=== PATIENT | female | born 1960 | race African-American/Black ===

== ENCOUNTER → 2018-01-08 | Outpatient (CLI) | payer OTHER | END | disposition home or self-care (01) | LOC: MAMMO 09:12 | DX: Z12.31 Encounter for screening mammogram for malignant neoplasm of breast (principal) | CPT/HCPCS: 77067 ==

== ENCOUNTER 2018-02-11 01:40 | Observation (INO) | payer OTHER ==
[~2018-02-11] VITALS: Ht 160 cm; Wt 83.0 kg
[2018-02-11] MEDS ORDERED: PRAV80TA2 PO (02:31)
[2018-02-11] MEDS ORDERED: CYCL10TA2 PO (02:31)
[2018-02-11] MEDS ORDERED: METF500T16 PO (02:31)
[2018-02-11] MEDS ORDERED: CELE100C PO (02:31)
[2018-02-11] MEDS ORDERED: METH-38 PO (02:31)
[2018-02-11] MEDS ORDERED: BENZ-8 PO (02:31)
[2018-02-11] MEDS ORDERED: CARV3.122 PO (02:31)
[2018-02-11] MEDS ORDERED: FENO160T PO (02:31)
[2018-02-11 02:56] LABS: BASO # 0.1 x10^3/uL (0.0-0.2); BASO % 1 % (0-3); EOS % 0 % (0-3); HEMATOCRIT 36.9 % (36.0-47.0); LYMPH % 8 % (24-48); MEAN CORPUSCULAR VOLUME 86 fL (79-100); MONO # 0.3 x10^3/uL (0.0-1.1); MONO % 2 % (0-9); NEUT # 10.7 x10^3uL (1.8-7.7); NEUT % 88 % (31-73); PLATELET COUNT 223 x10^3/uL (140-400); RED BLOOD COUNT 4.26 x10^6/uL (3.50-5.40); RED CELL DISTRIBUTION WIDTH 14.7 % (11.5-14.5); WHITE BLOOD COUNT 12.1 x10^3/uL (4.0-11.0)
[2018-02-11] MEDS ORDERED: ONDANSETRON PF 4 MG/2 ML VIAL. IV ONE (03:00)
[2018-02-11] MEDS ORDERED: IV NORMAL SALINE 1000ML BAG 1,000 ML IV ONE (03:00)
[2018-02-11 03:28] LABS: HEMOGLOBIN 12.7 g/dL (12.0-15.5); MEAN CORPUSCULAR HEMOGLOBIN 30 pg (25-35); MEAN CORPUSCULAR HGB CONC 34 g/dL (31-37)
[2018-02-11] MEDS ORDERED: fentaNYL PF VIAL 100 MCG/2 ML VIAL IV ONE (03:30)
[2018-02-11] MEDS ORDERED: DICYCLOMINE HCL 10 MG CAPSULE PO ONE (03:30)
--- NOTE | 2018-02-11 03:34 | PHYS DOC ---
Past Medical History Past Medical History: Diabetes-Type II, High Cholesterol Past Surgical History: Hysterectomy, Other Additional Past Surgical Histo: Right thumb, right carpal tunnel Alcohol Use: None Drug Use: None Adult General Chief Complaint Chief Complaint: ABDOMINAL PAIN HPI HPI Patient is a 57 year old female presenting with abdominal pain and vomiting. Since around 5 PM she had some leftover steak last night but nobody else had she was worried it might be bad abdominal pain is described as cramping diffuse worse around the bellybutton no diarrhea last bowel movement was a couple of days ago which is normal for her no fever no chest pain no shortness of breath. Review of Systems Review of Systems Constitutional: Denies fever or chills [] Eyes: Denies change in visual acuity, redness, or eye pain [] HENT: Denies nasal congestion or sore throat [] Musculoskeletal: Denies back pain or joint pain [] Integument: Denies rash or skin lesions [] Neurologic: Denies headache, focal weakness or sensory changes [] Endocrine: Denies polyuria or polydipsia [] All other systems were reviewed and found to be within normal limits, except as documented in this note. Current Medications Current Medications Current Medications Medications (Trade) Dose Ordered Sig/Rosemary Start Time Stop Time Status Last Admin Dose Admin Dicyclomine HCl (Bentyl) 10 mg 1X ONCE 02/11/18 03:30 02/11/18 03:31 DC Fentanyl Citrate (Fentanyl 2ml Vial) 50 mcg PRN Q2HR PRN 02/11/18 04:00 02/12/18 03:59 UNV Ondansetron HCl (Zofran) 4 mg PRN Q8HRS PRN 02/11/18 04:00 02/12/18 03:59 UNV Sodium Chloride 1,000 ml @ 100 mls/hr Q10H 02/11/18 03:57 02/12/18 03:56 UNV Allergies Allergies Allergies Coded Allergies Type Severity Reaction Last Updated Verified No Known Drug Allergies 02/11/18 No Physical Exam Physical Exam Constitutional: Well developed, well nourished, MILD distress, non-toxic appearance. [] HENT: Normocephalic, atraumatic, bilateral external ears normal, oropharynx moist, no oral exudates, nose normal. [] Eyes: PERRLA, EOMI, conjunctiva normal, no discharge. [] Neck: Normal range of motion, no tenderness, supple, no stridor. [] Cardiovascular:Heart rate regular rhythm, no murmur [] Lungs & Thorax: Bilateral breath sounds clear to auscultation [] Abdomen: Bowel sounds normal, soft, MILD TO MODERATE EPIGASTRIC tenderness, no masses, no pulsatile masses. [] Skin: Warm, dry, no erythema, no rash. [] Back: No tenderness, no CVA tenderness. [] Extremities: No tenderness, no cyanosis, no clubbing, ROM intact, no edema. [] Neurologic: Alert and oriented X 3, normal motor function, normal sensory function, no focal deficits noted. [] Psychologic: Affect normal, judgement normal, mood normal. [] Current Patient Data Vital Signs Vital Signs Date Time Temp Pulse Resp B/P (MAP) Pulse Ox O2 Delivery O2 Flow Rate FiO2 02/11/18 03:07 17 02/11/18 02:03 98.2 96 169/84 (112) 99 Room Air 98.2 Lab Values Laboratory Tests Test 02/11/18 02:48 White Blood Count 12.1 x10^3/uL (4.0-11.0) H Red Blood Count 4.26 x10^6/uL (3.50-5.40) Hemoglobin 12.7 g/dL (12.0-15.5) Hematocrit 36.9 % (36.0-47.0) Mean Corpuscular Volume 86 fL (79-100) Mean Corpuscular Hemoglobin 30 pg (25-35) Mean Corpuscular Hemoglobin Concent 34 g/dL (31-37) Red Cell Distribution Width 14.7 % (11.5-14.5) H Platelet Count 223 x10^3/uL (140-400) Neutrophils (%) (Auto) 88 % (31-73) H Lymphocytes (%) (Auto) 8 % (24-48) L Monocytes (%) (Auto) 2 % (0-9) Eosinophils (%) (Auto) 0 % (0-3) Basophils (%) (Auto) 1 % (0-3) Neutrophils # (Auto) 10.7 x10^3uL (1.8-7.7) H Lymphocytes # (Auto) 1.0 x10^3/uL (1.0-4.8) Monocytes # (Auto) 0.3 x10^3/uL (0.0-1.1) Eosinophils # (Auto) 0.0 x10^3/uL (0.0-0.7) Basophils # (Auto) 0.1 x10^3/uL (0.0-0.2) Platelet Estimate Pending Sodium Level 138 mmol/L (136-145) Potassium Level 4.5 mmol/L (3.5-5.1) Chloride Level 102 mmol/L (98-107) Carbon Dioxide Level 19 mmol/L (21-32) L Anion Gap 17 (6-14) H Blood Urea Nitrogen 9 mg/dL (7-20) Creatinine 0.5 mg/dL (0.6-1.0) L Estimated GFR (Cockcroft-Gault) 152.8 BUN/Creatinine Ratio 18 (6-20) Glucose Level 152 mg/dL (70-99) H Calcium Level 9.6 mg/dL (8.5-10.1) Total Bilirubin 0.4 mg/dL (0.2-1.0) Aspartate Amino Transferase (AST) 28 U/L (15-37) Alanine Aminotransferase (ALT) 34 U/L (14-59) Alkaline Phosphatase 50 U/L (46-116) Troponin I Quantitative < 0.017 ng/mL (0.000-0.055) Total Protein 7.6 g/dL (6.4-8.2) Albumin 4.1 g/dL (3.4-5.0) Albumin/Globulin Ratio 1.2 (1.0-1.7) Lipase 764 U/L (73-393) H Laboratory Tests 02/11/18 02:48 Laboratory Tests 02/11/18 02:48 EKG EKG [] Radiology/Procedures Radiology/Procedures [] Impressions: RUQ US ORDERED PENDING AT THIS [facility]. Course & Med Decision Making Course & Med Decision Making Pertinent Labs and Imaging studies reviewed. (See chart for details) []57-year-old female diabetes high cholesterol presenting with upper abdominal discomfort and frequent vomiting lipase elevated no previous history she is not a drinker ultrasound is pending to evaluate gallbladder to rule out gallstone pancreatitis. Given this is her first episode of pancreatitis and she did have moderate to severe symptoms I think admission for IV fluids bowel rest etc. pain control is reasonable. Admit to the service of Dr. Tien Parson Disclaimer Eb Disclaimer This electronic medical record was generated, in whole or in part, using a voice recognition dictation system. Departure Departure Impression: Primary Impression: Pancreatitis Disposition: 09 ADMITTED INPATIENT Admitting Physician: Abhi Silva Condition: STABLE Referrals: GABRIEL MATHUR Jr, MD (PCP) SHEYLA MERRITT MD Feb 11, 2018 03:34
[2018-02-11 03:39] LABS: CALCIUM 9.6 mg/dL (8.5-10.1); CREATININE 0.5 mg/dL (0.6-1.0); GFR 152.8; POTASSIUM 4.5 mmol/L (3.5-5.1)
[2018-02-11 03:44] LABS: ALBUMIN 4.1 g/dL (3.4-5.0); ALBUMIN/GLOBULIN RATIO 1.2 (1.0-1.7); TOTAL BILIRUBIN 0.4 mg/dL (0.2-1.0); TOTAL PROTEIN 7.6 g/dL (6.4-8.2)
[2018-02-11] MEDS ORDERED: ONDANSETRON PF 4 MG/2 ML VIAL. IV PRN ×2 (04:00→09:15)
[2018-02-11] MEDS ORDERED: IV NORMAL SALINE 1000ML BAG 1,000 ML IV SCH (04:30)
--- NOTE | 2018-02-11 04:55 | RAD ---
INDICATION : abd pain, n/v x 1 day COMPARISON: September 2003 TECHNIQUE: Multiple ultrasound images obtained through the abdomen in grayscale and color. FINDINGS: Liver: Echogenic Gallbladder: Partially visualized without definite stones. IVC: Partially seen at level of liver Common Bile Duct: Not dilated. Pancreas: Partially obscured by overlying structures. No definite adjacent fluid collection at visualized portion. Appears slightly hypoechoic. Right Kidney: No hydronephrosis. IMPRESSION: Liver appears echogenic. Nonspecific but can be seen with fatty infiltration. Pancreas is only partially seen and appears slightly hypoechoic. This is a borderline finding but pancreatitis not excluded. Electronically signed by: Geovanny Black MD (02/11/2018 4:52 AM) [id number]
[2018-02-11] MEDS: fentaNYL PF VIAL 100 MCG/2 ML VIAL IV PRN ×3 (05:10→14:42)
[2018-02-11 05:22] LABS: % BANDS 7 % (0-9); % LYMPHS 4 % (24-48); % MONOS 1 % (0-10); % SEGS 88 % (35-66)
[2018-02-11 05:23] LABS: PLT ESTIMATE ADEQUATE (ADEQUATE)
--- NOTE | 2018-02-11 06:18 | EKG ---
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
[2018-02-11 07:00] VITALS: BP 133/79
[2018-02-11] MEDS ORDERED: oxyCODONE/APAP 5/325 1 TAB TABLET PO PRN (09:15)
[2018-02-11] MEDS ORDERED: ACETAMINOPHEN 500 MG TABLET PO PRN (09:15)
--- NOTE | 2018-02-11 09:24 | PDOC2 ---
GI CONSULT Reason For Consult: Pancreatitis HPI: HPI: 57 y/o female admitted through ER. On Wednesday night ate reheated food her sister prepared, then ate Kike Lio on morning. Later that day had upper abdominal cramping associated w/ n/v Difficult to tell if radiated to back because she has had issues w/ back pain recently (going to PT, on Celebrex , plans for MRI). In ER, WBC 12.1 and lipase 764. US w/o gallstones, normal CBD, possible fatty liver, and slightly hypoechoic pancreas. Feels better this morning, drinking coffee, asking if she can eat the fruit her daughter brought and possibly go home later. No h/o pancreatitis but mentions h/o DM and HLD. No GB history. Maybe drinks alcohol once a year. Smokes less than a pack a day. Typically no issues w/ n/v or abd pain. Occasional heartburn improved w/ Tums. No dysphagia. No hematemesis, hematochezia, or melena. No diarrhea. H/o constipation improved w/ Miralax - was also recently advised by Dr. Wolfe to start taking teaspoons of fiber. Last colonoscopy w/ polyps 5-6 years ago and is actually scheduled to have a colonoscopy w/ Dr. Wolfe on Wednesday of next week. Prior to symptom onset, appetite and weight were stable. PMH: PMH: DM, HLD, colon polyps, constipation, hysterectomy, right trigger thumb release, right CTR FH: Family History: Cancer (maternal uncle - colon cancer) Social History: ALCOHOL: rare Drugs: None ROS: GEN: Denies fevers, chills, sweats HEENT: Denies blurred vision, sore throat CV: Denies chest pain RESP: Denies shortness of air, cough GI: Per HPI : Denies hematuria, dysuria ENDO: Denies weight changes NEURO: Denies confusion, dizziness MSK: +back pain SKIN: Denies jaundice, pruritus Vitals: Vitals: Vital Signs Date Time Temp Pulse Resp B/P (MAP) Pulse Ox O2 Delivery O2 Flow Rate FiO2 02/11/18 07:00 98.0 106 17 133/79 (97) 97 98.0 02/11/18 05:41 Room Air Labs: Labs: Laboratory Tests Test 9/14/18 02:48 White Blood Count 12.1 x10^3/uL (4.0-11.0) Red Blood Count 4.26 x10^6/uL (3.50-5.40) Hemoglobin 12.7 g/dL (12.0-15.5) Hematocrit 36.9 % (36.0-47.0) Mean Corpuscular Volume 86 fL (79-100) Mean Corpuscular Hemoglobin 30 pg (25-35) Mean Corpuscular Hemoglobin Concent 34 g/dL (31-37) Red Cell Distribution Width 14.7 % (11.5-14.5) Platelet Count 223 x10^3/uL (140-400) Neutrophils (%) (Auto) 88 % (31-73) Lymphocytes (%) (Auto) 8 % (24-48) Monocytes (%) (Auto) 2 % (0-9) Eosinophils (%) (Auto) 0 % (0-3) Basophils (%) (Auto) 1 % (0-3) Neutrophils # (Auto) 10.7 x10^3uL (1.8-7.7) Lymphocytes # (Auto) 1.0 x10^3/uL (1.0-4.8) Monocytes # (Auto) 0.3 x10^3/uL (0.0-1.1) Eosinophils # (Auto) 0.0 x10^3/uL (0.0-0.7) Basophils # (Auto) 0.1 x10^3/uL (0.0-0.2) Segmented Neutrophils % 88 % (35-66) Band Neutrophils % 7 % (0-9) Lymphocytes % 4 % (24-48) Monocytes % 1 % (0-10) Platelet Estimate Adequate (ADEQUATE) Sodium Level 138 mmol/L (136-145) Potassium Level 4.5 mmol/L (3.5-5.1) Chloride Level 102 mmol/L (98-107) Carbon Dioxide Level 19 mmol/L (21-32) Anion Gap 17 (6-14) Blood Urea Nitrogen 9 mg/dL (7-20) Creatinine 0.5 mg/dL (0.6-1.0) Estimated GFR (Cockcroft-Gault) 152.8 BUN/Creatinine Ratio 18 (6-20) Glucose Level 152 mg/dL (70-99) Calcium Level 9.6 mg/dL (8.5-10.1) Total Bilirubin 0.4 mg/dL (0.2-1.0) Aspartate Amino Transf (AST/SGOT) 28 U/L (15-37) Alanine Aminotransferase (ALT/SGPT) 34 U/L (14-59) Alkaline Phosphatase 50 U/L (46-116) Troponin I Quantitative < 0.017 ng/mL (0.000-0.055) Total Protein 7.6 g/dL (6.4-8.2) Albumin 4.1 g/dL (3.4-5.0) Albumin/Globulin Ratio 1.2 (1.0-1.7) Lipase 764 U/L (73-393) Allergies: Coded Allergies: No Known Drug Allergies (Unverified , 02/11/18) Medications: Current Medications Medications (Trade) Dose Ordered Sig/Rosemary Route PRN Reason Start Time Stop Time Status Last Admin Dose Admin Sodium Chloride 1,000 ml @ 1,000 mls/hr 1X ONCE IV 02/11/18 03:00 02/11/18 03:59 DC 02/11/18 02:55 Ondansetron HCl (Zofran) 4 mg 1X ONCE IV 02/11/18 03:00 02/11/18 03:01 DC 02/11/18 02:55 Fentanyl Citrate (Fentanyl 2ml Vial) 50 mcg 1X ONCE IV 02/11/18 03:30 02/11/18 03:31 DC 02/11/18 03:07 Dicyclomine HCl (Bentyl) 10 mg 1X ONCE PO 02/11/18 03:30 02/11/18 03:31 DC 02/11/18 04:12 Fentanyl Citrate (Fentanyl 2ml Vial) 50 mcg PRN Q2HR PRN IV SEVERE PAIN 02/11/18 04:00 02/12/18 03:59 02/11/18 05:10 Sodium Chloride 1,000 ml @ 125 mls/hr Q8H IV 02/11/18 04:30 02/12/18 04:29 02/11/18 05:10 Imaging: Imaging: Abd US FINDINGS: Liver: Echogenic Gallbladder: Partially visualized without definite stones. IVC: Partially seen at level of liver Common Bile Duct: Not dilated. Pancreas: Partially obscured by overlying structures. No definite adjacent fluid collection at visualized portion. Appears slightly hypoechoic. Right Kidney: No hydronephrosis. IMPRESSION: Liver appears echogenic. Nonspecific but can be seen with fatty infiltration. Pancreas is only partially seen and appears slightly hypoechoic. This is a borderline finding but pancreatitis not excluded. PE: GEN: NAD HEENT: Atraumatic, PERRL LUNGS: CTAB HEART: tachycardic ABD: NABS, S/ND/NT EXTREMITY: No edema SKIN: No rashes, no jaundice NEURO/PSYCH: A & O 3 A/P: A/P: Upper abd pain w/ n/v Mildly elevated lipase -no gallstones, no significant alcohol use -uses tobacco and has HLD CRC screen, h/o colon polyps Constipation - controlled Back pain, NSAID use -- Mild elevation in lipase - unclear etiology. Quick resolution of pain and vomiting. Okay to try clears, ADAT. Will review need for additional testing w/ Dr. Salazar. Empiric PPI considering NSAID use. Follow-up for screening colonoscopy as planned. JOSHUA HOWELL Feb 11, 2018 09:24
[2018-02-11] MEDS ORDERED: FENOFIBRATE,MICRONIZED 134 MG CAPSULE PO SCH (10:00)
[2018-02-11] MEDS ORDERED: METHOCARBAMOL 750 MG TABLET PO SCH (10:00)
[2018-02-11] MEDS: CYCLOBENZAPRINE 10 MG TABLET. PO SCH ×2 (10:00→14:00)
[2018-02-11] MEDS ORDERED: CARVEDILOL 3.125 MG TABLET. PO SCH (10:00)
[2018-02-11 10:15] VITALS: BP 119/77
--- NOTE | 2018-02-11 11:53 | PDOC3 ---
Discharge Summary Visit Information Date of Admission: Feb 10, 2018 Date of Discharge: Feb 11, 2018 Admitting Diagnosis Comment: acute pancreatitis, first episode-lipase 764 Obesity, BMI 33 Hypertension, GERD, dyslipidemia-chronic stable Plan: Home today, go easy on diet today then advance as tolerated at home Rx on chart Appreciate GI No procedures needed Brief Hospital Course Allergies Allergies Coded Allergies Type Severity Reaction Last Updated Verified No Known Drug Allergies 02/11/18 No Vital Signs Vital Signs Date Time Temp Pulse Resp B/P (MAP) Pulse Ox O2 Delivery O2 Flow Rate FiO2 02/11/18 10:20 Room Air 02/11/18 10:15 111 18 119/77 (91) 96 02/11/18 07:00 98.0 98.0 Lab Results Laboratory Tests Test 02/11/18 02:48 White Blood Count 12.1 x10^3/uL (4.0-11.0) Red Blood Count 4.26 x10^6/uL (3.50-5.40) Hemoglobin 12.7 g/dL (12.0-15.5) Hematocrit 36.9 % (36.0-47.0) Mean Corpuscular Volume 86 fL (79-100) Mean Corpuscular Hemoglobin 30 pg (25-35) Mean Corpuscular Hemoglobin Concent 34 g/dL (31-37) Red Cell Distribution Width 14.7 % (11.5-14.5) Platelet Count 223 x10^3/uL (140-400) Neutrophils (%) (Auto) 88 % (31-73) Lymphocytes (%) (Auto) 8 % (24-48) Monocytes (%) (Auto) 2 % (0-9) Eosinophils (%) (Auto) 0 % (0-3) Basophils (%) (Auto) 1 % (0-3) Neutrophils # (Auto) 10.7 x10^3uL (1.8-7.7) Lymphocytes # (Auto) 1.0 x10^3/uL (1.0-4.8) Monocytes # (Auto) 0.3 x10^3/uL (0.0-1.1) Eosinophils # (Auto) 0.0 x10^3/uL (0.0-0.7) Basophils # (Auto) 0.1 x10^3/uL (0.0-0.2) Segmented Neutrophils % 88 % (35-66) Band Neutrophils % 7 % (0-9) Lymphocytes % 4 % (24-48) Monocytes % 1 % (0-10) Platelet Estimate Adequate (ADEQUATE) Sodium Level 138 mmol/L (136-145) Potassium Level 4.5 mmol/L (3.5-5.1) Chloride Level 102 mmol/L (98-107) Carbon Dioxide Level 19 mmol/L (21-32) Anion Gap 17 (6-14) Blood Urea Nitrogen 9 mg/dL (7-20) Creatinine 0.5 mg/dL (0.6-1.0) Estimated GFR (Cockcroft-Gault) 152.8 BUN/Creatinine Ratio 18 (6-20) Glucose Level 152 mg/dL (70-99) Calcium Level 9.6 mg/dL (8.5-10.1) Total Bilirubin 0.4 mg/dL (0.2-1.0) Aspartate Amino Transf (AST/SGOT) 28 U/L (15-37) Alanine Aminotransferase (ALT/SGPT) 34 U/L (14-59) Alkaline Phosphatase 50 U/L (46-116) Troponin I Quantitative < 0.017 ng/mL (0.000-0.055) Total Protein 7.6 g/dL (6.4-8.2) Albumin 4.1 g/dL (3.4-5.0) Albumin/Globulin Ratio 1.2 (1.0-1.7) Lipase 764 U/L (73-393) Laboratory Tests Test 02/11/18 02:48 White Blood Count 12.1 x10^3/uL (4.0-11.0) Red Blood Count 4.26 x10^6/uL (3.50-5.40) Hemoglobin 12.7 g/dL (12.0-15.5) Hematocrit 36.9 % (36.0-47.0) Mean Corpuscular Volume 86 fL (79-100) Mean Corpuscular Hemoglobin 30 pg (25-35) Mean Corpuscular Hemoglobin Concent 34 g/dL (31-37) Red Cell Distribution Width 14.7 % (11.5-14.5) Platelet Count 223 x10^3/uL (140-400) Neutrophils (%) (Auto) 88 % (31-73) Lymphocytes (%) (Auto) 8 % (24-48) Monocytes (%) (Auto) 2 % (0-9) Eosinophils (%) (Auto) 0 % (0-3) Basophils (%) (Auto) 1 % (0-3) Neutrophils # (Auto) 10.7 x10^3uL (1.8-7.7) Lymphocytes # (Auto) 1.0 x10^3/uL (1.0-4.8) Monocytes # (Auto) 0.3 x10^3/uL (0.0-1.1) Eosinophils # (Auto) 0.0 x10^3/uL (0.0-0.7) Basophils # (Auto) 0.1 x10^3/uL (0.0-0.2) Segmented Neutrophils % 88 % (35-66) Band Neutrophils % 7 % (0-9) Lymphocytes % 4 % (24-48) Monocytes % 1 % (0-10) Platelet Estimate Adequate (ADEQUATE) Sodium Level 138 mmol/L (136-145) Potassium Level 4.5 mmol/L (3.5-5.1) Chloride Level 102 mmol/L (98-107) Carbon Dioxide Level 19 mmol/L (21-32) Anion Gap 17 (6-14) Blood Urea Nitrogen 9 mg/dL (7-20) Creatinine 0.5 mg/dL (0.6-1.0) Estimated GFR (Cockcroft-Gault) 152.8 BUN/Creatinine Ratio 18 (6-20) Glucose Level 152 mg/dL (70-99) Calcium Level 9.6 mg/dL (8.5-10.1) Total Bilirubin 0.4 mg/dL (0.2-1.0) Aspartate Amino Transf (AST/SGOT) 28 U/L (15-37) Alanine Aminotransferase (ALT/SGPT) 34 U/L (14-59) Alkaline Phosphatase 50 U/L (46-116) Troponin I Quantitative < 0.017 ng/mL (0.000-0.055) Total Protein 7.6 g/dL (6.4-8.2) Albumin 4.1 g/dL (3.4-5.0) Albumin/Globulin Ratio 1.2 (1.0-1.7) Lipase 764 U/L (73-393) Brief Hospital Course Ms. Guerra is a 57 old [sex] who presented with [ ] Very pleasant 57 year old -[place] female, obese with a BMI of 32.4, comes in because of first episode of acute pancreatitis, seemingly idiopathic. Not known diabetic, no hypertriglyceridemia, no gallstones on ultrasound. Nonalcoholic. Lipase is mildly elevated at 764. Admitted overnight, feeling better, not needing any pain medicines. Cleared by GI to go home. She would rather go home. I did advise her about Colace liquid diet today and she can advance as tolerated. Lipase of discharge 764. Rx on file. Pain medicine Procedures performed none Causes performed GI Time spent discharge less than 30 minutes, observation stay Discharge Information Condition at Discharge: Improved, Stable Disposition/Orders: D/C to Home Scheduled Carvedilol (Carvedilol) 3.125 Mg Tablet, 1 TAB PO BID, #60 Ref 3 (Reported) Entered as Reported by: CHRISTY TRAN on 02/11/18230 Last Action: Continued on 02/11/18904 by BATOOL CALDERA Celecoxib (Celebrex) 100 Mg Capsule, 100 MG PO BID for 30 Days, Ref 0 (Reported) Entered as Reported by: CHRISTY TRAN on 02/11/18230 Last Action: HELD on 02/11/18904 by BATOOL CALDERA Cyclobenzaprine Hcl (Cyclobenzaprine Hcl) 10 Mg Tablet, 10 MG PO TID, (Reported) Entered as Reported by: CHRISTY TRAN on 02/11/18230 Last Action: Continued on 02/11/18904 by BATOOL CALDERA Fenofibrate (Fenofibrate) 160 Mg Tablet, 160 MG PO DAILY, (Reported) Entered as Reported by: CHRISTY TRAN on 02/11/18230 Last Action: Converted on 02/11/18904 by BATOOL CALDERA Metformin Hcl (Metformin Hcl) 500 Mg Tablet, 500 MG PO BIDWMEALS for ANTI- DIABETIC, Ref 0 (Reported) Entered as Reported by: CHRISTY TRAN on 02/11/18230 Last Action: HELD on 02/11/18904 by BATOOL CALDERA Methocarbamol (Robaxin-750) 750 Mg Tablet, 1 TAB PO BID, #60 (Reported) Entered as Reported by: CHRISTY TRAN on 02/11/18230 Last Action: Continued on 02/11/18904 by BATOOL CALDERA Pravastatin Sodium (Pravastatin Sodium) 80 Mg Tablet, 80 MG PO DAILY, (Reported) Entered as Reported by: CHRISTY TRAN on 02/11/18230 Last Action: Converted on 02/11/18904 by BATOOL CALDERA Scheduled PRN Benzonatate (Benzonatate) 100 Mg Capsule, 100 MG PO BID PRN for COUGH, (Reported ) Entered as Reported by: CHRISTY TRAN on 02/11/18230 Last Action: Converted on 02/11/18904 by BATOOL HOOVER MD Feb 11, 2018 11:53
--- NOTE | 2018-02-11 11:53 | PDOC1 ---
History and Physical Date of Admission Date of Admission DATE: 02/11/18 TIME: 11:48 Identification/Chief Complaint Chief Complaint abd pain around the bellybutton Source Source: Caregiver, Chart review, Patient History of Present Illness History of Present Illness Very pleasant 57 year old -[place] female, obese with a BMI of 32.4, comes in because of first episode of acute pancreatitis, seemingly idiopathic. Not known diabetic, no hypertriglyceridemia, no gallstones on ultrasound. Nonalcoholic. Lipase is mildly elevated at 764. Admitted overnight, feeling better, not needing any pain medicines. Cleared by GI to go home. She would rather go home. I did advise her about liquid diet today and she can advance as tolerated. Lipase of discharge 764. Rx on file. Pain medicine Procedures performed none Consults performed GI Time spent discharge less than 30 minutes, observation stay Past Medical History Cardiovascular: HTN, Hyperlipidemia GI: GERD Past Surgical History Past Surgical History: No pertinent history Family History Family History: No Significant Social History Smoke: No ALCOHOL: rare Drugs: None Current Medications Current Medications Current Medications Sodium Chloride 1,000 ml @ 1,000 mls/hr 1X ONCE IV Last administered on at 02:55; Start 02/11/18 at 03:00; Stop 02/11/18 at 03:59; Status DC Ondansetron HCl (Zofran) 4 mg 1X ONCE IV Last administered on 02/11/18at 02:55 ; Start 02/11/18 at 03:00; Stop 02/11/18 at 03:01; Status DC Fentanyl Citrate (Fentanyl 2ml Vial) 50 mcg 1X ONCE IV Last administered on at 03:07; Start 02/11/18 at 03:30; Stop 02/11/18 at 03:31; Status DC Dicyclomine HCl (Bentyl) 10 mg 1X ONCE PO Last administered on 02/11/18at 04:12 ; Start 02/11/18 at 03:30; Stop 02/11/18 at 03:31; Status DC Ondansetron HCl (Zofran) 4 mg PRN Q8HRS PRN IV NAUSEA/VOMITING 1ST CHOICE; Start 02/11/18 at 04:00; Stop 02/11/18 at 09:04; Status DC Fentanyl Citrate (Fentanyl 2ml Vial) 50 mcg PRN Q2HR PRN IV SEVERE PAIN Last administered on 02/11/18at 10:20; Start 02/11/18 at 04:00; Stop 02/12/18 at 03:59 Sodium Chloride 1,000 ml @ 125 mls/hr Q8H IV Last administered on 02/11/18at 05 :10; Start 02/11/18 at 04:30; Stop 02/12/18 at 04:29 Ondansetron HCl (Zofran) 4 mg PRN Q6HRS PRN IV NAUSEA/VOMITING 1ST CHOICE; Start 02/11/18 at 09:15 Acetaminophen (Tylenol) 500 mg PRN Q6HRS PRN PO MILD PAIN / TEMP; Start at 09:15 Oxycodone/ Acetaminophen (Percocet 5/325) 1 tab PRN Q4HRS PRN PO MOD-SEVERE PAIN; Start 02/11/18 at 09:15 Carvedilol (Coreg) 3.125 mg BIDWMEALS PO Last administered on 02/11/18at 10:09; Start 02/11/18 at 10:00 Cyclobenzaprine HCl (Flexeril) 10 mg TID PO ; Start 02/11/18 at 10:00 Methocarbamol (Robaxin) 750 mg BID PO ; Start 02/11/18 at 10:00 Benzonatate (Tessalon Perle) 100 mg PRN BID PRN PO COUGH; Start 02/11/18 at 14: 00 Fenofibrate (Lofibra) 134 mg DAILY PO Last administered on 02/11/18at 10:08; Start 02/11/18 at 10:00 Atorvastatin Calcium (Lipitor) 20 mg QHS PO ; Start 02/11/18 at 21:00 Active Scripts Active Reported Celebrex (Celecoxib) 100 Mg Capsule 100 Mg PO BID 30 Days Pravastatin Sodium 80 Mg Tablet 80 Mg PO DAILY Fenofibrate 160 Mg Tablet 160 Mg PO DAILY Cyclobenzaprine Hcl 10 Mg Tablet 10 Mg PO TID Robaxin-750 (Methocarbamol) 750 Mg Tablet 1 Tab PO BID Benzonatate 100 Mg Capsule 100 Mg PO BID PRN Carvedilol 3.125 Mg Tablet 1 Tab PO BID Metformin Hcl 500 Mg Tablet 500 Mg PO BIDWMEALS Allergies Allergies: Coded Allergies: No Known Drug Allergies (Unverified , 02/11/18) ROS Review of System Per history of present illness, rest of ROS 14 point negative Physical Exam General: Alert, Oriented X3, Cooperative, No acute distress HEENT: Atraumatic, PERRLA, EOMI Lungs: Clear to auscultation, Normal air movement Heart: S1S2, RRR, no thrills, no rubs, no gallops, no murmurs Cardiovascular: S1, S2 Breasts: Normal, Rt breast nml w/o mass, Lt breast nml w/o mass, Nipples normal Abdomen: Normal bowel sounds, Soft, No tenderness, No hepatosplenomegaly, No masses Extremities: No clubbing, No cyanosis, No edema, Normal pulses, No tenderness/ swelling Skin: No rashes, No breakdown, No significant lesion Neuro: Normal gait, Normal speech, Strength at 5/5 X4 ext, Normal tone, Sensation intact, Cranial nerves 3-12 NL, Reflexes 2+ Psych/Mental Status: Mental status NL, Mood NL Vitals Vitals Vital Signs Date Time Temp Pulse Resp B/P (MAP) Pulse Ox O2 Delivery O2 Flow Rate FiO2 02/11/18 10:20 Room Air 02/11/18 10:15 111 18 119/77 (91) 96 02/11/18 07:00 98.0 98.0 Labs Labs Laboratory Tests Test 02/11/18 02:48 White Blood Count 12.1 x10^3/uL (4.0-11.0) Red Blood Count 4.26 x10^6/uL (3.50-5.40) Hemoglobin 12.7 g/dL (12.0-15.5) Hematocrit 36.9 % (36.0-47.0) Mean Corpuscular Volume 86 fL (79-100) Mean Corpuscular Hemoglobin 30 pg (25-35) Mean Corpuscular Hemoglobin Concent 34 g/dL (31-37) Red Cell Distribution Width 14.7 % (11.5-14.5) Platelet Count 223 x10^3/uL (140-400) Neutrophils (%) (Auto) 88 % (31-73) Lymphocytes (%) (Auto) 8 % (24-48) Monocytes (%) (Auto) 2 % (0-9) Eosinophils (%) (Auto) 0 % (0-3) Basophils (%) (Auto) 1 % (0-3) Neutrophils # (Auto) 10.7 x10^3uL (1.8-7.7) Lymphocytes # (Auto) 1.0 x10^3/uL (1.0-4.8) Monocytes # (Auto) 0.3 x10^3/uL (0.0-1.1) Eosinophils # (Auto) 0.0 x10^3/uL (0.0-0.7) Basophils # (Auto) 0.1 x10^3/uL (0.0-0.2) Segmented Neutrophils % 88 % (35-66) Band Neutrophils % 7 % (0-9) Lymphocytes % 4 % (24-48) Monocytes % 1 % (0-10) Platelet Estimate Adequate (ADEQUATE) Sodium Level 138 mmol/L (136-145) Potassium Level 4.5 mmol/L (3.5-5.1) Chloride Level 102 mmol/L (98-107) Carbon Dioxide Level 19 mmol/L (21-32) Anion Gap 17 (6-14) Blood Urea Nitrogen 9 mg/dL (7-20) Creatinine 0.5 mg/dL (0.6-1.0) Estimated GFR (Cockcroft-Gault) 152.8 BUN/Creatinine Ratio 18 (6-20) Glucose Level 152 mg/dL (70-99) Calcium Level 9.6 mg/dL (8.5-10.1) Total Bilirubin 0.4 mg/dL (0.2-1.0) Aspartate Amino Transf (AST/SGOT) 28 U/L (15-37) Alanine Aminotransferase (ALT/SGPT) 34 U/L (14-59) Alkaline Phosphatase 50 U/L (46-116) Troponin I Quantitative < 0.017 ng/mL (0.000-0.055) Total Protein 7.6 g/dL (6.4-8.2) Albumin 4.1 g/dL (3.4-5.0) Albumin/Globulin Ratio 1.2 (1.0-1.7) Lipase 764 U/L (73-393) Laboratory Tests Test 02/11/18 02:48 White Blood Count 12.1 x10^3/uL (4.0-11.0) Red Blood Count 4.26 x10^6/uL (3.50-5.40) Hemoglobin 12.7 g/dL (12.0-15.5) Hematocrit 36.9 % (36.0-47.0) Mean Corpuscular Volume 86 fL (79-100) Mean Corpuscular Hemoglobin 30 pg (25-35) Mean Corpuscular Hemoglobin Concent 34 g/dL (31-37) Red Cell Distribution Width 14.7 % (11.5-14.5) Platelet Count 223 x10^3/uL (140-400) Neutrophils (%) (Auto) 88 % (31-73) Lymphocytes (%) (Auto) 8 % (24-48) Monocytes (%) (Auto) 2 % (0-9) Eosinophils (%) (Auto) 0 % (0-3) Basophils (%) (Auto) 1 % (0-3) Neutrophils # (Auto) 10.7 x10^3uL (1.8-7.7) Lymphocytes # (Auto) 1.0 x10^3/uL (1.0-4.8) Monocytes # (Auto) 0.3 x10^3/uL (0.0-1.1) Eosinophils # (Auto) 0.0 x10^3/uL (0.0-0.7) Basophils # (Auto) 0.1 x10^3/uL (0.0-0.2) Segmented Neutrophils % 88 % (35-66) Band Neutrophils % 7 % (0-9) Lymphocytes % 4 % (24-48) Monocytes % 1 % (0-10) Platelet Estimate Adequate (ADEQUATE) Sodium Level 138 mmol/L (136-145) Potassium Level 4.5 mmol/L (3.5-5.1) Chloride Level 102 mmol/L (98-107) Carbon Dioxide Level 19 mmol/L (21-32) Anion Gap 17 (6-14) Blood Urea Nitrogen 9 mg/dL (7-20) Creatinine 0.5 mg/dL (0.6-1.0) Estimated GFR (Cockcroft-Gault) 152.8 BUN/Creatinine Ratio 18 (6-20) Glucose Level 152 mg/dL (70-99) Calcium Level 9.6 mg/dL (8.5-10.1) Total Bilirubin 0.4 mg/dL (0.2-1.0) Aspartate Amino Transf (AST/SGOT) 28 U/L (15-37) Alanine Aminotransferase (ALT/SGPT) 34 U/L (14-59) Alkaline Phosphatase 50 U/L (46-116) Troponin I Quantitative < 0.017 ng/mL (0.000-0.055) Total Protein 7.6 g/dL (6.4-8.2) Albumin 4.1 g/dL (3.4-5.0) Albumin/Globulin Ratio 1.2 (1.0-1.7) Lipase 764 U/L (73-393) VTE Prophylaxis Ordered VTE Prophylaxis Devices: Yes VTE Pharmacological Prophylaxi: Yes Assessment/Plan Assessment/Plan Pelvic acute pancreatitis, first episode-lipase 764 Obesity, BMI 33 Hypertension, GERD, dyslipidemia-chronic stable Plan: Home today, go easy on diet today then advance as tolerated at home Rx on chart Appreciate GI No procedures needed BATOOL CALDERA MD Feb 11, 2018 11:52
[2018-02-11] MEDS ORDERED: BENZONATATE 100 MG CAPSULE. PO PRN (14:00)
[2018-02-11 17:10] LABS: CHOLESTEROL 489 mg/dL (0-200)
[2018-02-11 18:03] LABS: TRIGLYCERIDES 3323 mg/dL (0-150); VLDLC 665 mg/dL (0-40)
[2018-02-11] MEDS ORDERED: ATORVASTATIN CALCIUM 20 MG TABLET PO SCH (21:00)
== END 2018-02-11 15:30 | disposition home or self-care (01) ==
LOC: ER 01:40 → INTOOBSV 04:00 → 5 SOUTH 04:00
PROVIDERS: ADMIT Family Medicine; ATTEND Family Medicine
DX: K85.90 Acute pancreatitis without necrosis or infection, unspecified (principal); E11.9 Type 2 diabetes mellitus without complications; E78.00 Pure hypercholesterolemia, unspecified; E66.9 Obesity, unspecified; E78.5 Hyperlipidemia, unspecified; I10 Essential (primary) hypertension; K21.9 Gastro-esophageal reflux disease without esophagitis; F17.210 Nicotine dependence, cigarettes, uncomplicated; K59.00 Constipation, unspecified; Z90.710 Acquired absence of both cervix and uterus; Z80.0 Family history of malignant neoplasm of digestive organs; Z86.010 Personal history of colon polyps; Z79.84 Long term (current) use of oral hypoglycemic drugs
CPT/HCPCS: 36415; 76705; 80053; 80061; 83690; 84484; 85007; 85025; 93005; 96361; 96374; 96375; 96376; 99285; G0378; J2405; J3010; J7030; G0379

== ENCOUNTER → 2018-02-16 | Outpatient (CLI) | payer OTHER ==
[2018-02-11 10:15] VITALS: BP 119/77
[~2018-02-16] MED LIST: BENZ-8 PO; CARV3.122 PO; CELE100C PO; CYCL10TA2 PO; FENO160T PO; METF500T16 PO; METH-38 PO; PRAV80TA2 PO
--- NOTE | 2018-02-16 10:19 | RAD ---
MRI Lumbar Spine without contrast History: Low back pain, bilateral radiculopathy for 2 months, muscle spasms Technique: Multiplanar, multi sequential noncontrast MR imaging was performed of the lumbar spine. Contrast: None Comparison: None Findings: Lumbar vertebral body stature is preserved. There is very minimal grade 1 anterior spondylolisthesis at L4-5. There is mild degenerative disc disease at L4-5, mild disc desiccation at other levels other than sparing L1-2. Conus terminates at T12-L1. There are posterior annular tears L2-3 through L5-S1. There is is likely small Tarlov cyst at S3 about 0.8 cm. L1-L2: Neural foramina and spinal canal are adequate. L2-L3: There is disc osteophyte complex and bulge, mild indentation upon the ventral thecal sac. There is minimal narrowing of the far lateral recesses greater on the left. There is minimal buckling of the ligamentum flavum. Neural foramina are adequate. L3-L4: There is mild buckling of the ligamentum flavum. Neural foramina are adequate. Spinal canal is overall adequate L4-L5: There is disc osteophyte complex and bulge. There is mild buckling of the ligamentum flavum and facet degenerative change. There is minimal fluid in the facet articulations greater on the right. There is mild narrowing of the far lateral recesses bilaterally. There is mild inferior neural foramina compromise bilaterally with bulge near the undersurfaces exiting L4 nerve roots extending to the proximal extraforaminal regions without displacement. L5-S1: There is negligible bulge somewhat more eccentric to the left lateral recess without significant impingement descending S1 nerve roots. Spinal canal is overall adequate. There is mild neural foramina compromise greater on the left. Impression: 1. There is mild narrowing of the far lateral recesses bilaterally at L4-5 and to a lesser degree at L2-3. 2. There is mild degenerative disc disease L4-5, mild disc desiccation at other levels other than sparing L1-2. 3. There is mild grade 1 anterior spondylolisthesis L4-5 at which there is facet degenerative change. 4. There is mild neural foramina compromise bilaterally at L4-5 and L5-S1, bulge also near the undersurfaces of proximal extraforaminal L4 nerve roots at L4-5 without displacement. Electronically signed by: Kiran Pete MD (02/16/2018 10:16 AM) [facility]
== END | disposition home or self-care (01) ==
LOC: MRI 09:08
PROVIDERS: ATTEND Internal Medicine
DX: M51.36 Other intervertebral disc degeneration, lumbar region (principal); M43.16 Spondylolisthesis, lumbar region; M48.061 Spinal stenosis, lumbar region without neurogenic claudication; M25.78 Osteophyte, vertebrae; M51.37 Other intervertebral disc degeneration, lumbosacral region; I10 Essential (primary) hypertension; E11.9 Type 2 diabetes mellitus without complications; E78.5 Hyperlipidemia, unspecified; E78.00 Pure hypercholesterolemia, unspecified; K21.9 Gastro-esophageal reflux disease without esophagitis; F17.210 Nicotine dependence, cigarettes, uncomplicated; Z86.010 Personal history of colon polyps; Z90.710 Acquired absence of both cervix and uterus; Z80.0 Family history of malignant neoplasm of digestive organs
CPT/HCPCS: 72148

== ENCOUNTER → 2018-03-17 | Outpatient (CLI) | payer OTHER ==
[~2018-03-17] MED LIST changes: +ACET325T9 PO
--- NOTE | 2018-03-18 02:40 | PAIN ---
DATE OF SERVICE: 03/17/2018 INITIAL CONSULTATION FOR PAIN CLINIC CHIEF COMPLAINT: Low back and bilateral lower extremity pain, right greater than left. HISTORY OF PRESENT ILLNESS: The patient is a 57-year-old female who presents with history of pain in the low back for about 6-8 months, increasing without result of any specific injury or action that she is aware of, but increasing with pain in the low back, slightly worse on the right than the left in the posterior gluteus, posterior lateral thigh, lateral anterior thigh, medial thighs, medial lower legs and into the medial and posterior calf, worse on the right than the left, but present bilaterally. The patient reports it is intermittent in intensity, radiating into the legs and as noted with aching pain across the low back. The patient reports it does not awaken her from sleep at night, much better with sitting or lying down, but worse with standing, walking and weightbearing, changing positions, especially bending or stooping or repetitive motions, does not affect her bowel or bladder control or her ability to walk significantly. She is not using assistive device to ambulate. The patient has had physical therapy recently at [id number], also chiropractic treatment was ongoing and exercises she was doing on her own and they are ongoing. She has tried methocarbamol, celecoxib, as well as Tylenol Extra Strength all of which decreased the pain, but only by about 10-20%. The patient did have an MRI scan of the lumbar spine showing mild narrowing at the far lateral recesses bilaterally at L4-L5 and to a lesser degree L2-L3, positive degenerative disk disease L4-L5, disk desiccation at other levels except L1-L2, anterior grade 1 spondylolisthesis at L4-L5 and mild neural foraminal compromise bilateral L4-L5 and L5-S1. The patient rates her disability rate from 0-10, 10 being the worst, is a 5 with home responsibilities, recreation, social activity, and sexual behavior, 6 with occupation, 3 with self care and life support activities. The patient reports no loss of motor function, but significant fatigability at the bilateral lower extremities, especially on the right. PAST MEDICAL HISTORY: Significant for hypertension and type 2 diabetes, cigarette smoking half a pack a day for the past 25 years. PREVIOUS SURGERY: Include hysterectomy in 1993 and a trigger finger release in 1989. CURRENT MEDICATIONS: Include Celebrex, pravastatin, Robaxin, metformin, carvedilol, and Tylenol. ALLERGIES: The patient has no known drug allergies. FAMILY HISTORY: Significant for no major medical problems or conditions she is aware of. SOCIAL HISTORY: The patient does not drink alcohol. Smokes half pack of cigarettes per day, has done for 25 years. She is , lives with her spouse, lives locally in [place], [place]. REVIEW OF SYSTEMS: The patient's review of systems is positive for those items mentioned in history of present illness. All systems reviewed and otherwise negative. It is complete, full and well documented on the patient's chart. PHYSICAL EXAMINATION: VITAL SIGNS: The patient's blood pressure is 145/95, pulse 90, respirations 18, temperature 98.3 degrees Fahrenheit, height is 5 feet 3 inches and weighs 178 pounds. GENERAL: The patient is awake, alert, oriented, appropriate, very pleasant demeanor. HEENT: Head is normocephalic, atraumatic. Extraocular movements are intact, symmetrical. Oral cavity: Mucous membranes moist and pink. Dentition is intact. NECK: Shows anterior throat supple without palpable lymphadenopathy noted. Swallow reflex is symmetrical. CHEST: Shows normal on inspection. Breath sounds clear to auscultation bilaterally. HEART: Shows S1, S2 clear. No murmurs auscultated. ABDOMEN: Soft, nontender, nondistended. No palpable organomegaly is noted. No rebound or guarding demonstrated. BACK: Shows spine grossly in the midline. Normal appearing thoracic kyphosis and lumbar lordotic curvature. Lumbar paraspinous muscle shows symmetrical on inspection, on palpation shows moderate tenderness bilaterally, but only diffusely in the lumbar paraspinous muscles without radiation. The patient has good rotational motion of lumbar spine, both laterally as well as extension and flexion without difficulty or pain reported. No tenderness over the sacrum or sacroiliac regions over the spinous processes. EXTREMITIES: Lower extremities show deep tendon reflexes 2+ in the patellar, 1+ tendo-calcaneus tendons. Motor exam is approximately 4 on a scale of 5 on the right, 5/5 on the left with dorsiflexion, extension, quadriceps and hamstring flexion. Peripheral pulses are 1+ posterior tibia. No peripheral edema is noted. No clubbing or cyanosis. Lower extremities are warm and dry to touch, equal in color and appearance. Straight leg raising noted to be positive on the right at about 40 degrees, decreased with knee flexion, left side is negative. Gaenslen's and Mario's maneuvers are negative bilaterally as well. The patient is able to stand, stand on her toes without difficulty or loss of balance, walks with a normal appearing gait, does not appear to favor the right or left lower extremity significantly, not using any assistive devices to ambulate. SKIN: Shows warm and dry, good turgor. No edema. No sores, rashes or bruising. IMPRESSION: 1. This is a 57-year-old female with approximate 6-8 month history of increasing pain in the low back, bilateral lower extremities, worse on the right than the left, traveling in an L4-L5 dermatomal distribution in a radicular pattern. 2. MRI scan of lumbar spine as noted. 3. Type 2 diabetes. 4. Hypertension. 5. Cigarette smoking. PLAN: Options were discussed with the patient including conservative medical management, continued physical therapies and interventional techniques and she has done physical therapy and is doing exercises on her own. She would like to pursue interventional techniques. We discussed a lumbar epidural steroid injection using description as well as anatomical models to describe the procedure. The patient will wait for preauthorization with her insurance provider and will have her return once this is obtained for a lumbar epidural steroid injection at that time. In the meantime, we will try Medrol Dosepak. The patient was given instruction as well as side effects to be aware of. LILIANA ALVAREZ MD DR: EMMA/juan JOB#: [id number] / [id number] Aftab Carrillo MD
== END | disposition home or self-care (01) ==
LOC: PNCL 08:24
PROVIDERS: ATTEND Anesthesiology
DX: M51.36 Other intervertebral disc degeneration, lumbar region (principal); M43.16 Spondylolisthesis, lumbar region; I10 Essential (primary) hypertension; E11.9 Type 2 diabetes mellitus without complications; F17.210 Nicotine dependence, cigarettes, uncomplicated; Z90.710 Acquired absence of both cervix and uterus
CPT/HCPCS: 99214

== ENCOUNTER → 2018-04-11 | Outpatient (CLI) | payer OTHER ==
[~2018-04-11] MED LIST changes: +IOHEXOL 180 MG/ML 10 ML VIAL. ONE; +LIDOCAINE 1% PF 2 ML VIAL. ONE; +methylPREDNISolone ACETATE 40 MG/ML VIAL. ONE; +methylPREDNISolone ACETATE 80 MG/ML VIAL. ONE
--- NOTE | 2018-04-11 20:38 | PAIN ---
DATE OF SERVICE: 04/11/2018 PROGRESS NOTE FOR PAIN CLINIC DIAGNOSIS: Lumbar radiculopathy with lumbar degenerative disk disease. HISTORY OF PRESENT ILLNESS: The patient is a 57-year-old female who returns for followup status post initial evaluation and preauthorization for lumbar epidural steroid injection. The patient returns reporting she did fairly well with the Medrol Dosepak helped for a few days, but the pain is still significant in the low back, especially in the right lower extremity, posterior gluteus, posterior lateral thigh, lateral anterior thigh, anterior medial thighs bilaterally and across the low back. The patient reports pain is an 8 on a scale of 10 at its worst, 8 on average, 7 at its least and is a 7 today. The patient reports it is aching, shooting, burning, radiating, worse with standing, walking, changing positions, better with sitting or lying down. It does not awaken her from sleep at night. The patient reports no new motor or sensory deficits, no new bowel or bladder incontinence or other complaints. PHYSICAL EXAMINATION: VITAL SIGNS: The patient's blood pressure is 134/84, pulse 94, respirations 18, temperature 98.3 degrees Fahrenheit, height is 5 feet 3 inches, weight 177 pounds. GENERAL: The patient is awake, alert, oriented, appropriate, very pleasant demeanor. HEENT: Head shows normocephalic, atraumatic. Extraocular movements intact and symmetrical. Oral cavity: Mucous membranes moist and pink. Dentition intact. NECK: Shows anterior throat supple without palpable lymphadenopathy noted. Swallow reflex is symmetrical. CHEST: Shows normal on inspection. Breath sounds clear to auscultation bilaterally. HEART: Shows S1, S2 clear. No murmurs auscultated. ABDOMEN: Soft, nontender, nondistended. No palpable organomegaly is noted. No rebound or guarding demonstrated. BACK: Shows spine grossly in the midline. Normal appearing thoracic kyphosis and lumbar lordotic curvature. Lumbar paraspinous muscle shows symmetrical on inspection, with palpation shows some moderate tenderness diffusely bilaterally, but only diffusely without radiation. EXTREMITIES: The patient's lower extremities show deep tendon reflexes at 2+ in the patellar, 1+ tendo calcaneus tendons. Motor exam is approximately 4 on a scale of 5 on the right and dorsiflexion and extension, 5/5 on the left. Peripheral pulses are 1+ posterior tibial. No peripheral edema is noted bilaterally. Options were discussed with the patient. The patient's old chart was reviewed as her current medication regimen updated. Current review of systems updated today as well. We will proceed with lumbar epidural steroid injection today with fluoroscopic guidance. Risks were again discussed including, but not limited to, bleeding, infection, possibility of epidural hematoma, subsequent neurologic compromise, dural puncture, headaches, spinal cord and/or nerve damage, side effects of steroid medication and poor results regarding pain control. The patient understands and wished to proceed. The patient to return to clinic in approximately 2 weeks for followup, was counseled on return appointment, activity level and side effects to be aware of. DIAGNOSIS: Lumbar radiculopathy with lumbar degenerative disk disease. PROCEDURE: Lumbar epidural steroid injection, translaminar approach at L4-L5 level using C-arm fluoroscopic guidance under sterile prep and drape using local anesthetic. MEDICATION INJECTED: A total of 120 mg of Depo-Medrol plus 10 mL of preservative-free normal saline and 2 mL of Isovue for contrast. CONDITION AT DISCHARGE: Stable. The patient tolerated procedure well, had no complications. LILIANA ALVAREZ MD DR: EMMA/juan JOB#: [id number] / [id number]
== END | disposition home or self-care (01) ==
LOC: PNCL 07:58
PROVIDERS: ATTEND Anesthesiology
DX: M51.16 Intervertebral disc disorders with radiculopathy, lumbar region (principal)
CPT/HCPCS: 62323; J1030; J1040; Q9965

== ENCOUNTER → 2018-05-11 | Outpatient (CLI) | payer OTHER ==
[~2018-05-11] MED LIST changes: +CARV3.1210 PO; -CARV3.122 PO; -IOHEXOL 180 MG/ML 10 ML VIAL. ONE; -LIDOCAINE 1% PF 2 ML VIAL. ONE; -methylPREDNISolone ACETATE 40 MG/ML VIAL. ONE; -methylPREDNISolone ACETATE 80 MG/ML VIAL. ONE
--- NOTE | 2018-05-11 18:52 | PAIN ---
DATE OF SERVICE: 05/11/2018 PROGRESS NOTE FOR PAIN CLINIC DIAGNOSES: Lumbar radiculopathy with lumbar degenerative disk disease. HISTORY OF PRESENT ILLNESS: The patient is a 58-year-old female who returns for followup status post lumbar epidural steroid injection x 1. The patient reports about 75% improvement for about 3 weeks and now about 60% improved and overall has been about one month since her injection. The patient reports she is doing quite well but the pain is returning and she is noticing it more day by day, slightly worse on the right than the left in the low back in the bilateral lower extremities, mostly in the lateral anterior thigh, anterior medial thigh, medial lower leg, again worse on the right side of the medial calf. The patient reports it is 7 on a scale of 10 at all times, worse, average and its least and is 7 today. The patient reports it is on and off in intensity, worse with walking, standing, changing positions, better with sitting or lying down. Reports it does not awaken her from sleep. Burning, stabbing, shooting, especially in the right leg. The patient reports no new motor or sensory deficits. No new bowel or bladder incontinence. She has been increasing her distance walking, able to do work activities, household activities with much greater ease and comfort and has ability to stand for longer periods as well. PHYSICAL EXAMINATION: VITAL SIGNS: The patient's blood pressure is 134/90, pulse 90, respirations 16, temperature 98.2 degrees Fahrenheit, height 5 feet 3 inches, weight is 179 pounds. GENERAL: The patient is awake, alert, oriented, appropriate, very pleasant demeanor. HEENT: Head shows normocephalic, atraumatic. Extraocular movements are intact and symmetrical. Oral cavity: Mucous membranes are moist and pink. Dentition is intact. NECK: Shows anterior throat supple without lymphadenopathy noted. Swallow reflex symmetrical. CHEST: Shows normal on inspection. Breath sounds are clear to auscultation bilaterally. HEART: Shows S1, S2 clear. No murmurs auscultated. ABDOMEN: Soft, nontender, nondistended. No palpable organomegaly is noted. No rebound or guarding demonstrated. BACK: Shows spine grossly in midline. Normal appearing thoracic kyphosis and lumbar lordotic curvature. Lumbar paraspinous muscles shows symmetric on inspection. With palpation, showed some mild tenderness, only diffusely in the low lumbar distribution without radiation, without trigger points. The patient has full rotational motion of the lumbar spine, both laterally as well as extension and flexion without significant difficulty or pain reported. No tenderness over the sacrum or sacroiliac regions. EXTREMITIES: Lower extremities show deep tendon reflexes 2+ in the patella and 1+ tendo-calcaneus tendons are equal. Motor exam is strong with 5/5 dorsiflexion and extension on the left and 4/5 on the right. Peripheral pulses are 1+ posterior tibial. No peripheral edema is noted bilaterally. Options were discussed with the patient. The patient's old chart was reviewed as well as her current medication regimen updated. Current review of systems updated today as well. We will preauthorize the patient for a second lumbar epidural steroid injection today. She still has radicular pain, greater in the left than the right in L4-L5 dermatomal distribution. The patient will continue doing strengthening and stretching exercises as she has been doing and walking daily as tolerated, also will try Medrol Dosepak in the meantime. The patient is given instructions and side effects to be aware of with medication and will follow up in approximately 2 weeks as scheduled for a second lumbar epidural steroid injection at that time. LILIANA ALVAREZ MD DR: EMMA/juan JOB#: [id number] / [id number]
== END | disposition home or self-care (01) ==
LOC: PNCL 13:37
PROVIDERS: ATTEND Anesthesiology
DX: M51.16 Intervertebral disc disorders with radiculopathy, lumbar region (principal)
CPT/HCPCS: G0463

== ENCOUNTER → 2018-05-18 | Outpatient (CLI) | payer OTHER ==
[~2018-05-18] MED LIST changes: +IOHEXOL 180 MG/ML 10 ML VIAL. ONE; +methylPREDNISolone ACETATE 40 MG/ML VIAL. ONE; +methylPREDNISolone ACETATE 80 MG/ML VIAL. ONE
--- NOTE | 2018-05-18 20:35 | PAIN ---
DATE OF SERVICE: 05/18/2018 PROGRESS NOTE FOR PAIN CLINIC DIAGNOSIS: Lumbar radiculopathy with lumbar degenerative disk disease. HISTORY OF PRESENT ILLNESS: The patient is a 58-year-old female who returns for followup status post lumbar epidural steroid injection x 1. The patient had recent preauthorization and returns for second injection today. The patient reports still significant decrease in pain about 75% improvement after the first injection, still doing better with walking, standing and changing positions, but the pain is beginning to return in the low back, right greater than left lower extremity. The patient reports no new motor or sensory deficits and no new bowel or bladder incontinence. The patient reports she is sleeping well at night, is much worse with standing, sitting for a prolonged periods, walking and changing positions. The patient reports it is an 8 on a scale of 10 at its worst, 6 on average, 6 at its least and described as radiating, shooting, tight, dull, alternating across the low back and aching as well as some stabbing pain occasionally with extended walking. The patient reports no new motor or sensory deficits and no new bowel or bladder incontinence or other complaints. PHYSICAL EXAMINATION: VITAL SIGNS: The patient's blood pressure is 142/90, pulse 96, respirations are 18 and temperature 99.0 degrees Fahrenheit. Height is 5 feet 3 inches and weighs 172 pounds. GENERAL: The patient is awake, alert, oriented, appropriate and very pleasant demeanor. HEENT: Head shows normocephalic and atraumatic. Extraocular movements are intact and symmetrical. Oral cavity, mucous membranes are moist and pink. Dentition intact. NECK: Shows anterior throat supple without palpable lymphadenopathy noted. Swallow reflex symmetrical. CHEST: Shows normal with inspection. Breath sounds clear to auscultation bilaterally. HEART: Shows S1 and S2 clear. No murmurs auscultated. ABDOMEN: Soft, nontender and nondistended. No palpable organomegaly is noted. No rebound or guarding demonstrated. BACK: Shows spine grossly in the midline. Normal appearing thoracic kyphosis and lumbar lordotic curvature. Lumbar paraspinous muscle shows symmetrical on inspection, on palpation shows some moderate tenderness but only diffusely in the low lumbar distribution without radiation. The patient has good rotational motion of the lumbar spine. EXTREMITIES: Lower extremities show deep tendon reflexes 2+ in the patellar, 1+ tendo-calcaneus tendons. Motor exam is approximately 4 on a scale 5 on the right, 5/5 on the left with dorsiflexion and extension. Peripheral pulses are 1+ posterior tibia. No peripheral edema is noted bilaterally. Options were discussed with the patient. The patient's old chart was reviewed as well as her current medication regimen updated. Current review of systems updated today as well. We will proceed with a second in the series of lumbar epidural steroid injection today with fluoroscopic guidance. Risks were again discussed including, but not limited to bleeding, infection, possibility of epidural hematoma and subsequent neurological compromise, dural puncture, headaches, spinal cord and/or nerve damage, side effects of steroid medication and poor results regarding pain control. The patient understands and wished to proceed. The patient will return to the clinic in approximately 2 weeks for followup, was counseled as to return appointment, activity level and side effects to be aware of. DIAGNOSIS: Lumbar radiculopathy with lumbar degenerative disk disease. PROCEDURE: Lumbar epidural steroid injection, translaminar approach, L4-L5 level using C-arm fluoroscopic guidance under sterile prep and drape using local anesthetic. MEDICATION INJECTED: A total of 120 mg Depo-Medrol plus 10 mL of preservative-free normal saline and 2 mL of Isovue for contrast. CONDITION AT DISCHARGE: Stable. The patient tolerated the procedure well and had no complications. LILIANA ALVAREZ MD DR: EMMA/juan JOB#: [id number] / [id number]
== END | disposition home or self-care (01) ==
LOC: PNCL 14:07
PROVIDERS: ATTEND Anesthesiology
DX: M51.16 Intervertebral disc disorders with radiculopathy, lumbar region (principal); Z79.899 Other long term (current) drug therapy
CPT/HCPCS: 62323; J1030; J1040; Q9965

== ENCOUNTER → 2018-08-16 | Outpatient (CLI) | payer OTHER ==
[~2018-08-16] MED LIST changes: +CRESTOR5 MG PO; +IBUP-1007 PO
--- NOTE | 2018-08-23 19:54 | PAIN ---
DATE OF SERVICE: 08/16/2018 DIAGNOSIS: Lumbar radiculopathy with lumbar degenerative disk disease. HISTORY OF PRESENT ILLNESS: The patient is a 58-year-old female who returns for followup status post lumbar epidural steroid injections, prior most recently on 05/18/2018. The patient did very well with this with about a 60% improvement with a gradual return now in the low back and in the bilateral lower extremities. The patient reports no new motor or sensory deficits, no new bowel or bladder incontinence. It is more on the right than the left into the lower extremities, more in the right posterior gluteus, posterolateral thigh, lateral anterior thigh, anterior medial thigh on the right as well as the lateral thigh on the left, but into the lower leg on the right side. The patient reports it is worse with walking, standing and changing positions. The patient reports it awakens her from sleep occasionally, but not every night. The patient reports no new motor or sensory deficits, no new bowel or bladder incontinence. She is taking 800 mg ibuprofen b.i.d. The patient reports that her pain is an 8 on a scale of 10 at its worst, on average and a 7 at its least and is a 7 today. The patient reports it is aching, cramping, burning, becoming more unbearable, on and off in intensity, though worse with standing and walking, better with sitting or lying down, but occasionally does awaken her from sleep, but not every night. The patient reports no new motor or sensory deficits, no new bowel or bladder incontinence or other complaints. PHYSICAL EXAMINATION: VITAL SIGNS: The patient's blood pressure is 141/92, pulse 81, respirations are 18, temperature 98.0 degrees Fahrenheit, height is 5 feet 3 inches, weight is 176 pounds. GENERAL: The patient is awake, alert, oriented, appropriate, very pleasant demeanor. HEENT: Head shows normocephalic, atraumatic. Extraocular movements are intact and symmetrical. Oral cavity: Mucous membranes are moist and pink. Dentition is intact. NECK: Shows anterior throat supple without palpable lymphadenopathy noted. Swallow reflex is symmetrical. CHEST: Shows normal on inspection. Breath sounds are clear to auscultation bilaterally. HEART: Shows S1, S2 clear. No murmurs auscultated. ABDOMEN: Soft, nontender, nondistended. No palpable organomegaly is noted. No rebound or guarding demonstrated. BACK: Shows spine grossly in the midline. Normal appearing thoracic kyphosis and lumbar lordotic curvature. Lumbar paraspinous muscle shows symmetrical on inspection. On palpation, she has some moderate tenderness but only diffusely without significant radiation. The patient shows good rotational motion of lumbar spine, both laterally as well as extension and flexion without significant difficulty. EXTREMITIES: The patient's lower extremities show deep tendon reflexes at 2+ in the patellar and 1+ tendo-calcaneus tendons. Motor exam is strong with approximately 4 on a scale of 5 with right dorsiflexion and extension, and 5/5 on the left. Peripheral pulses are 1+ posterior tibial. No peripheral edema is noted bilaterally. Options were discussed with the patient. The patient's old chart was reviewed as her current medication regimen updated. Current review of systems updated today as well. We will proceed with a lumbar epidural steroid injection, the third in a series today with fluoroscopic guidance. Risks were again discussed including, but not limited to bleeding, infection, possibility of epidural hematoma, subsequent neurological compromise, dural puncture, headaches, spinal cord and/or nerve damage, side effects of steroid medication and poor results regarding pain control. The patient understands and wished to proceed. The patient will return to the clinic in approximately 2 weeks for followup, was counseled on return appointment, activity level and side effects to be aware of. DIAGNOSIS: Lumbar radiculopathy with lumbar degenerative disk disease. PROCEDURE: Lumbar epidural steroid injection, translaminar approach at L4-L5 level using C-arm fluoroscopic guidance under sterile prep and drape using local anesthetic. MEDICATION INJECTED: A total of 120 mg Depo-Medrol plus 10 mL of preservative-free normal saline and 2 mL of Omnipaque for contrast. CONDITION AT DISCHARGE: Stable. The patient tolerated the procedure well, had no complications. LILIANA ALVAREZ MD DR: EMMA/juan JOB#: [id number] / [id number]
== END | disposition home or self-care (01) ==
LOC: PNCL 08:28
PROVIDERS: ATTEND Anesthesiology
DX: M51.16 Intervertebral disc disorders with radiculopathy, lumbar region (principal)
CPT/HCPCS: 62323; J1030; J1040; Q9965

== ENCOUNTER → 2018-10-18 | Outpatient (CLI) | payer OTHER ==
[~2018-10-18] MED LIST changes: -IOHEXOL 180 MG/ML 10 ML VIAL. ONE; -methylPREDNISolone ACETATE 40 MG/ML VIAL. ONE; -methylPREDNISolone ACETATE 80 MG/ML VIAL. ONE
--- NOTE | 2018-10-18 19:14 | PAIN ---
DATE OF SERVICE: 10/18/2018 PROGRESS NOTE FOR PAIN CLINIC DIAGNOSES: 1. Lumbar radiculopathy with lumbar degenerative disk disease. 2. Right greater trochanteric bursitis. HISTORY OF PRESENT ILLNESS: The patient is a 58-year-old female who returns for followup status post lumbar epidural steroid injection x 1 on 08/16/2018. The patient reports about 6 weeks of 85-90% improvement in her low back and right lower extremity pain. The patient reports the pain is returning now, but only to a moderate extent in the low back, right leg, right posterior gluteus, posterior lateral thigh, lateral anterior thigh, anterior medial thigh, medial lower leg, worse with walking and standing, also some pain in the right lateral aspect of the leg and the hip as well. The patient reports her pain as a 9 on a scale of 10 at its worst, 8 on average, 8 at its least and is an 8 today. The patient reports it is aching, burning, stabbing, radiating, constant, becoming more constant over the past few days. The patient reports was up until about the past 6 weeks. She was doing much better and was increasing her distance walking, doing work activities, household activities and traveling with greater ease and comfort, sleeping better at night, still does not awaken her from sleep and it is worse with weightbearing and standing. The patient reports also some pain fairly well localized in the lateral aspect of the right hip, which radiates into the lateral thigh as well as into the right flank with weightbearing, standing all of her weight on her right leg, stepping up stairs or curbs, nursing as well, but no groin pain to speak of. The patient reports no other complaints, no new motor or sensory deficits, no new bowel or bladder incontinence or other complaints, was doing very much better, but now the pain is returning. PHYSICAL EXAMINATION: VITAL SIGNS: The patient's blood pressure is 140/92, pulse 62, respirations 18, temperature 97.4 degrees Fahrenheit, height is 5 feet 3 inches, weight is 177 pounds. GENERAL: The patient is awake, alert, oriented, appropriate, very pleasant demeanor. HEENT: Head shows normocephalic, atraumatic. Extraocular movements are intact and symmetrical. Oral cavity: Mucous membranes are moist and pink. Dentition is intact. NECK: Shows anterior throat supple without palpable lymphadenopathy noted. Swallow reflex is symmetrical. CHEST: Shows normal on inspection. Breath sounds are clear to auscultation bilaterally. HEART: Shows S1, S2 clear. No murmurs auscultated. ABDOMEN: Soft, nontender, nondistended. No palpable organomegaly is noted. No rebound or guarding demonstrated. BACK: Shows spine grossly in the midline. Normal-appearing cervical lordotic curvature, thoracic kyphotic curvature and lumbar lordotic curvature. Lumbar paraspinous muscle shows symmetrical on inspection, on palpation has some moderate tenderness diffusely, but only in the low lumbar distribution, only diffusely without radiation, without trigger points. The patient has good rotational motion of lumbar spine, both laterally as well as extension and flexion without significant difficulty. EXTREMITIES: Lower extremities show deep tendon reflexes 2+ in the patellar, 1+ tendo-calcaneus tendons. Motor exam is approximately 4 on a scale of 5 with right dorsiflexion and extension, and 5/5 on the left. Examination of the patient's right hip shows some significant tenderness with palpation over the right greater trochanter, but not over the left. This radiates into the lateral thigh and also into the lateral iliac crest on the right side. Peripheral pulses are 1+ posterior tibia. No peripheral edema is noted bilaterally. Options were discussed with the patient. The patient's old chart was reviewed as her current medication regimen updated. Current review of systems updated today as well. We will preauthorize the patient for a second lumbar epidural steroid injection. She did very well with the first and still has radicular pain in an L4-L5 dermatomal distribution on the right leg. I will plan on translaminar approach to the L4-L5 level on return, also potential right greater trochanteric bursa injection as she has some significant bursitis symptoms on the right greater trochanter. The patient will return to the clinic, will continue with strengthening and stretching exercises, also will be given Medrol Dosepak in the meantime with instructions and side effects to be aware of discussed and will follow up in approximately 1 week and plan on lumbar epidural steroid injection #2 at that time. LILIANA ALVAREZ MD DR: EMMA/juan JOB#: [id number] / [id number]
== END | disposition home or self-care (01) ==
LOC: PNCL 10:34
PROVIDERS: ATTEND Anesthesiology
DX: M51.16 Intervertebral disc disorders with radiculopathy, lumbar region (principal); M70.61 Trochanteric bursitis, right hip
CPT/HCPCS: G0463

== ENCOUNTER → 2018-10-31 | Outpatient (CLI) | payer OTHER ==
[~2018-10-31] MED LIST changes: +BUPIVACAINE MPF 0.25% 10 ML VIAL. ONE; +IOHEXOL 180 MG/ML 10 ML VIAL. ONE; +methylPREDNISolone ACETATE 80 MG/ML VIAL. ONE
--- NOTE | 2018-11-01 01:58 | PAIN ---
DATE OF SERVICE: 10/31/2018 PROGRESS NOTE FOR PAIN CLINIC DIAGNOSES: 1. Lumbar radiculopathy with lumbar degenerative disk disease. 2. Right greater trochanteric bursitis. HISTORY OF PRESENT ILLNESS: The patient is a 58-year-old female who returns for followup status post lumbar epidural steroid injection as well as a Medrol Dosepak in the past. The patient reports she did very well about 80%-90% improvement for about 2-1/2 months after the last lumbar injection; however, her hip was hurting significantly. We got some hip films that show no osseous abnormalities in the bilateral hips, more on the right side. The patient reports still significant pain on the right lateral hip in the superior lateral aspect of the hip itself. The patient reports it is worse with walking, standing, changing positions, getting up from seated position, wakes her from sleep when she lays on her right side. The patient reports it has been this way for about 2-1/2 months. The patient reports she is sleeping at night fairly well but if she lays on her right side, it does awaken her from sleep after about 7 hours. The patient reports the pain is a 9 on a scale of 10 at its worst, 9 on average and 8 at its least and is a 9 today. The patient reports it is an aching, sharp, stabbing, becoming more constant with radiation as well as across the low back and into the right lower extremity. She has had some radicular pain, which is also still present but her right lateral hip pain is much more significant at this time. The patient reports no new motor or sensory deficits and no new bowel or bladder incontinence or other complaints. PHYSICAL EXAMINATION: VITAL SIGNS: Today, the patient's blood pressure is 141/85, pulse 83, respirations are 16 and temperature 98.0 degrees Fahrenheit. Height is 5 feet 3 inches and weight is 179 pounds. GENERAL: The patient is awake, alert, oriented, appropriate and very pleasant demeanor. HEENT: Head shows normocephalic and atraumatic. Extraocular movements are intact and symmetrical. Oral cavity, mucous membranes are moist and pink. Dentition is intact. NECK: Shows anterior throat supple without palpable lymphadenopathy noted. Swallow reflex symmetrical. CHEST: Shows normal with inspection. Breath sounds clear to auscultation bilaterally. HEART: Shows S1 and S2 clear. No murmurs auscultated. ABDOMEN: Soft, obese, nontender and nondistended. No palpable organomegaly is noted. No rebound or guarding demonstrated. BACK: Shows spine grossly in the midline. Normal appearing thoracic kyphosis and lumbar lordotic curvature. Lumbar paraspinous musculature shows symmetrical on inspection, with palpation shows some diffuse tenderness in the middle and lower distribution of the paraspinous muscles but only diffusely without radiation. The patient has good rotational motion of the lumbar spine, both laterally as well as extension and flexion without difficulty. EXTREMITIES: The patient's lower extremities show deep tendon reflexes at 2+ in the patellar and 1+ tendo-calcaneus tendons. Motor exam is approximately 4 on a scale of 5 on the right, 5/5 on the left with dorsiflexion and extension. The patient's right hip shows significant pain and tenderness over the superior aspect of the right greater trochanter and also has some pain over the right lateral aspect of the iliac crest but significant pain with both areas with palpation. No radiation is demonstrated. Options were discussed with the patient. The patient's old chart was reviewed as well as her current medication regimen updated. Current review of systems is updated today as well and we will proceed with right greater trochanteric bursa injection with fluoroscopic guidance. Risks were again discussed including, but not limited to bleeding, infection, possibility of intravascular injection sequelae, spread of local anesthetic and numbness, side effects of steroid medication and poor results regarding pain control. The patient understands and wished to proceed. The patient will return to the clinic in approximately 2 weeks for followup, was counseled as to return appointment, activity level and side effects to be aware of. We discussed a potential lumbar epidural steroid injection on her return if the hip is doing better at that time and she would like to proceed with that as well. DIAGNOSIS: Right greater trochanteric bursitis. PROCEDURE: Right greater trochanteric bursa injection using C-arm fluoroscopic guidance under sterile prep and drape using local anesthetic. MEDICATION INJECTED: A total of 80 mg of Depo-Medrol plus total of 3 mL of 0.25% bupivacaine and 2 mL of contrast. CONDITION AT DISCHARGE: Stable. The patient tolerated the procedure well and had no complications. LILIANA ALVAREZ MD DR: EMMA/juan JOB#: [id number] / [id number]
== END ==
LOC: PNCL 11:28
PROVIDERS: ATTEND Anesthesiology
DX: M70.61 Trochanteric bursitis, right hip (principal); M51.16 Intervertebral disc disorders with radiculopathy, lumbar region
CPT/HCPCS: 20610; J1040; J3490; Q9965; 20605

== ENCOUNTER → 2018-11-16 | Outpatient (CLI) | payer OTHER ==
[~2018-11-16] MED LIST changes: -BUPIVACAINE MPF 0.25% 10 ML VIAL. ONE; +methylPREDNISolone ACETATE 40 MG/ML VIAL. ONE
--- NOTE | 2018-11-16 12:33 | PAIN ---
DATE OF SERVICE: 11/16/2018 DIAGNOSES: 1. Lumbar radiculopathy with lumbar degenerative disk disease. 2. Right greater trochanteric bursitis. HISTORY OF PRESENT ILLNESS: The patient is a 58-year-old female who returns for followup status post lumbar epidural steroid injection as well as right greater trochanteric bursitis injection. The patient reports her hip is still painful with pain across the low back and hip injection was not that helpful. She has had lumbar epidural steroid injections in the past, which were helpful, most recently in July of this year with about 90% improvement for about 2-1/2 months. The patient reports still pain in the low back, bilateral lower extremities, worse on the right than the left, into the posterior lateral thigh, lateral anterior thigh, medial thigh, into the lower leg as well as across the low back. The patient reports it is worse with walking, standing, changing positions, better with sitting or lying down, but awakens her from sleep occasionally but very rarely. The patient reports the pain is a 9 on a scale of 10 at its worst over the past week, 9 on average, 8 at its least. Describes as aching and tight stabbing and radiating, again more in the right leg than the left. The patient reports no other changes. No new bowel or bladder incontinence. PHYSICAL EXAMINATION: VITAL SIGNS: The patient's blood pressure is 135/80, pulse 79, respirations 16, temperature 98.2 degrees Fahrenheit, height is 5 feet 3 inches, weight is 178 pounds. GENERAL: The patient is awake, alert, oriented, appropriate, very pleasant demeanor. HEENT: Shows normocephalic, atraumatic. Extraocular muscles are intact and symmetrical. Oral cavity, mucous membranes are moist and pink. Dentition is intact. NECK: Shows anterior throat supple without palpable lymphadenopathy noted. Swallow reflex symmetrical. CHEST: Shows normal on inspection. Breath sounds clear to auscultation bilaterally. HEART: Shows S1, S2 clear. No murmurs auscultated. ABDOMEN: Soft, nontender, nondistended. No palpable organomegaly is noted. BACK: Shows spine grossly in the midline. Slight exaggeration of thoracic kyphosis and mild flattening of lumbar lordotic curvature. Lumbar paraspinous shows symmetrical on inspection. On palpation shows some moderate tenderness diffusely, but only diffusely without specific radiation. EXTREMITIES: Lower extremities show deep tendon reflexes 2+ in the patellar, 1+ tendo-calcaneus tendons. Motor exam is approximately 4 on a scale of 5 on the right and 5/5 on the left with dorsiflexion and extension. Peripheral pulses are 1+ posterior tibial. No peripheral edema is noted. Options were discussed with the patient. The patient's old chart was reviewed as her current medication regimen updated. Current review of systems updated today as well. We will proceed with a first in this series of lumbar epidural steroid injection today with fluoroscopic guidance. Risks were again discussed including, but not limited to bleeding, infection, possibility of epidural hematoma, subsequent neurological compromise, dural puncture, headaches, spinal cord and/or nerve damage, side effects of steroid medication and poor results regarding pain control. The patient understands and wished to proceed. The patient will return to clinic in approximately 2 weeks for followup, was counseled on return appointment, activity level and side effects to be aware of. DIAGNOSIS: Lumbar radiculopathy with lumbar degenerative disk disease. PROCEDURE: Lumbar epidural steroid injection, translaminar approach L4-L5 level using C-arm fluoroscopic guidance under sterile prep and drape using local anesthetic. MEDICATION INJECTED: A total of 120 mg Depo-Medrol plus 10 mL of preservative-free normal saline and 2 mL of contrast. CONDITION AT DISCHARGE: Stable. The patient tolerated procedure well, had no complications. LILIANA ALVAREZ MD DR: EMMA/juan JOB#: [id number] / [id number]
== END ==
LOC: PNCL 07:57
PROVIDERS: ATTEND Anesthesiology
DX: M51.16 Intervertebral disc disorders with radiculopathy, lumbar region (principal); M70.61 Trochanteric bursitis, right hip
CPT/HCPCS: 62323; J1030; J1040; Q9965

== ENCOUNTER → 2018-11-17 | Outpatient (CLI) | payer OTHER ==
[~2018-11-17] MED LIST changes: -IOHEXOL 180 MG/ML 10 ML VIAL. ONE; -methylPREDNISolone ACETATE 40 MG/ML VIAL. ONE; -methylPREDNISolone ACETATE 80 MG/ML VIAL. ONE
--- NOTE | 2018-11-17 14:16 | KCIC ---
MRI Lumbar Spine without contrast History: Lumbar radiculopathy, low back pain, bilateral radiculopathy greater on the right for about one year Technique: Multiplanar, multi sequential noncontrast MR imaging was performed of the lumbar spine. Comparison: February 16, 2018 Findings: Lumbar vertebral body stature is overall maintained. Conus terminates near T12-L1. There is no significant marrow edema. 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 There is negligible anterior spondylolisthesis at L4-5 although not as apparent. There is vacuum disc disease L4-5. T11-12: There is a very shallow posterior bulge/protrusion without significant spinal stenosis, this level not included on the axial images. T12-L1: There is shallow posterior protrusion about 3 mm AP without significant spinal stenosis, this level not included on the axial images. There is minimal buckling of the ligamentum flavum. L1-L2: There is negligible disc osteophyte complex. Neural foramina and spinal canal are adequate. L2-L3: There is minimal disc osteophyte complex and bulge with mild indentation upon the ventral thecal sac as seen previously. There is mild buckling of the ligamentum flavum. There is mild narrowing of the far lateral recesses greater on the left. Neural foramina are adequate. L3-L4: There is mild buckling of the ligamentum flavum. There is minimal facet degenerative change. There is now very minimal bulge. Spinal canal is overall adequate. Neural foramina are not significantly narrowed. L4-L5: There is again disc osteophyte complex and bulge. There is mild buckling of the ligamentum flavum and facet degenerative change. Spinal canal is not significantly narrowed, previously greater degree of mild narrowing of the far lateral recesses not apparent on this exam. There is mild neural foramina compromise inferiorly bilaterally by disc osteophyte complex/bulge near the undersurfaces of the exiting L4 nerve roots extending to proximal extraforaminal regions as seen previously. L5-S1: There is again very minimal bulge, spinal canal overall adequate. There is again mild left greater than right neural foramina compromise. Impression: 1. Findings are fairly similar compared with previous January 2018 exam although slightly decreased lateral recess stenosis at L4-5 probably due to somewhat lesser degree of very mild grade 1 anterior spondylolisthesis during exam. There is no new significant lumbar spinal stenosis, minimal narrowing of the far lateral recesses greater on left at L2-3. There is mild neural foramina compromise at L4-5 and L5-S1. Electronically signed by: Kiran Pete MD (11/17/2018 2:14 PM) [email or web address]
== END ==
LOC: KCIC MRI 12:08
PROVIDERS: ATTEND Anesthesiology
DX: M51.16 Intervertebral disc disorders with radiculopathy, lumbar region (principal); M25.78 Osteophyte, vertebrae
CPT/HCPCS: 72148

== ENCOUNTER → 2019-01-16 | Outpatient (CLI) | payer OTHER ==
[~2019-01-16] MED LIST changes: +IOHEXOL 180 MG/ML 10 ML VIAL. IT ONE; +LIDOCAINE 1% Multi-Dose 20 ML VIAL. ID ONE
--- NOTE | 2019-01-16 12:16 | KCIC ---
CT lumbar spine exam History: Lumbar spondylosis, low back pain with bilateral sciatica for one year Technique: CT imaging was performed of the lumbar spine after injection for lumbar myelogram. Multiplanar reconstruction images are submitted. Exposure: One or more of the following individualized dose reduction techniques were utilized for this examination: 1. Automated exposure control 2. Adjustment of the mA and/or kV according to patient size 3. Use of iterative reconstruction technique. Comparison: Lumbar spine MRI exam November 17, 2018 Findings: There is grade 1 anterior spondylolisthesis at L4-5. There is mild degenerative disc disease at L4-5. Lumbar vertebral body stature is maintained. Conus terminates at L1. T12-L1: There is shallow posterior bulge. Spinal canal and neural foramina are adequate. L1-L2: There is very shallow protrusion in the left lateral recess. Spinal canal and neural foramina are adequate. There is sfhb-zv-nqsofvmk facet degenerative change. L2-L3: There is moderate facet hypertrophic change and mild buckling of the ligamentum flavum. There is disc osteophyte complex and minimal bulge. Neural foramina and spinal canal are overall adequate. L3-L4: There is acpo-ao-daqwwfck buckling of the ligamentum flavum and facet hypertrophic change. There is very disc osteophyte complex and bulge. The is mild narrowing of the inferior neural foramina bilaterally. Spinal canal is overall adequate. L4-L5: There is partial uncovering of the posterior aspect of the disc due to spondylolisthesis. There is superimposed minimal disc osteophyte complex and superimposed bulge. There is moderate facet hypertrophic change and mild to moderate buckling of the ligamentum flavum. There is mild indentation upon the ventral thecal sac somewhat greater in the far lateral recess, minimal narrowing of the far lateral recesses greater on the left. Degree of indentation upon the ventral thecal sac appears greater on the standing views with myelogram performed before this exam. There is moderate to severe narrowing of the inferior left neural foramen by disc osteophyte complex and bulge with contact exiting left L4 nerve root extending to proximal extraforaminal region, ogan-ge-slwoctjn narrowing of the right neural foramen also with contact undersurface exiting right L4 nerve root. L5-S1: There is disc osteophyte complex and bulge, mild indentation upon the ventral thecal sac greater in the left lateral recess without significant impingement of the descending left S1 nerve root or significant spinal stenosis. There is mild buckling of the ligament flavum. There is moderate narrowing of the left neural foramen with contact of the undersurface exiting left L5 nerve root by disc osteophyte complex, right neural foramen overall adequate. Impression: 1. There is overall mild narrowing of the lateral recesses greater on left at L4-5 although degree of indentation upon the ventral thecal sac by bulge appears greater on the standing views for myelogram performed prior to this exam. 2. There is neural foramina compromise as stated most notable on the left at L4-5, to a lesser degree on the left at L5-S1 and on the right at L4-5. 3. There is grade 1 anterior spondylolisthesis at L4-5 at which there is facet degenerative change and buckling of the ligamentum flavum. 4. There is mild degenerative disc disease L4-5. Electronically signed by: Kiran Pete MD (01/16/2019 12:13 PM) [email or web address]
--- NOTE | 2019-01-16 12:19 | KCIC ---
Lumbar Myelogram History: Low back pain into the lower extremities bilaterally for one year Technique: Patient was informed of the risks of the procedure to include pain, infection, bleeding, seizures, nerve root injury, and allergic reaction to the contrast. All questions were answered. Patient signed a written consent form for a lumbar myelogram. The patient was placed in a prone oblique position on the fluoroscopy table. External site of the lower back was prepped and draped in the usual sterile fashion. Betadine was utilized for cleansing solution. 1% lidocaine was utilized for local anesthesia at the anticipated site of puncture left L3-4 interlaminar space. A 19-gauge guiding needle was advanced into the soft tissues. Through the guiding needle, a 25 gauge Lopez needle was advanced until there was return of cerebral spinal fluid. Approximately 15 cc of Omnipaque 180 were then injected during fluoroscopic visualization. The needles were removed. Bandage was applied. Fluoroscopic spot images including standing images were acquired of the lumbar spine. The patient was then transferred to the CT department for CT examination of the lumbar spine. There were no immediate complications. Fluoroscopy time: 1 minute 33 seconds, 16 images Findings: There is no evidence of myelographic block. With the patient in upright position, there was greater degree of attenuation of the contrast column near the L4 and L5 levels. There is prominent anterior extradural defect at L4-5, smaller anterior extradural defects at other levels. There is grade 1 anterior spondylolisthesis at L4-5 somewhat reduced with extension and flexion compared with neutral position. There is negligible posterior subluxation L3 relative to L4 and L2 relative to L3 fairly similar with flexion and extension. There is negligible posterior subluxation L1 relative to L2 accentuated with extension. There is mild degenerative disc disease L4-5. Impression: 1. There are multilevel anterior extradural defects, largest at L4-5. There is multilevel mild abnormal alignment as stated, most notable grade 1 anterior spondylolisthesis at L4-5 somewhat reduced with flexion and extension. Electronically signed by: Kiran Pete MD (01/16/2019 12:16 PM) [email or web address]
== END | disposition home or self-care (01) ==
LOC: KCIC 09:28
PROVIDERS: ATTEND Neurological Surgery
DX: M51.36 Other intervertebral disc degeneration, lumbar region (principal); M51.26 Other intervertebral disc displacement, lumbar region; M47.816 Spondylosis without myelopathy or radiculopathy, lumbar region; M89.38 Hypertrophy of bone, other site; M25.78 Osteophyte, vertebrae; M48.07 Spinal stenosis, lumbosacral region; I10 Essential (primary) hypertension; M43.16 Spondylolisthesis, lumbar region; E11.9 Type 2 diabetes mellitus without complications; F17.200 Nicotine dependence, unspecified, uncomplicated
CPT/HCPCS: 72132; 72265; Q9965

== ENCOUNTER → 2019-03-06 | Outpatient (CLI) | payer OTHER ==
[~2019-03-06] MED LIST changes: +DOCU100C28 PO; +FENO145T30 PO; +HYDR-2761 PO; -IOHEXOL 180 MG/ML 10 ML VIAL. IT ONE; -LIDOCAINE 1% Multi-Dose 20 ML VIAL. ID ONE; +METH750T2 PO
--- NOTE | 2019-03-06 15:48 | EKG ---
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
[2019-03-06 16:25] LABS: BASO % 1 % (0-3); EOS # 0.1 x10^3/uL (0.0-0.7); EOS % 2 % (0-3); HEMATOCRIT 36.2 % (36.0-47.0); HEMOGLOBIN 12.3 g/dL (12.0-15.5); LYMPH # 2.4 x10^3/uL (1.0-4.8); LYMPH % 43 % (24-48); MEAN CORPUSCULAR HEMOGLOBIN 30 pg (25-35); MEAN CORPUSCULAR HGB CONC 34 g/dL (31-37); MEAN CORPUSCULAR VOLUME 89 fL (79-100); MONO # 0.6 x10^3/uL (0.0-1.1); MONO % 10 % (0-9); NEUT # 2.6 x10^3/uL (1.8-7.7); NEUT % 45 % (31-73); PLATELET COUNT 228 x10^3/uL (140-400); RED BLOOD COUNT 4.05 x10^6/uL (3.50-5.40); RED CELL DISTRIBUTION WIDTH 13.8 % (11.5-14.5); WHITE BLOOD COUNT 5.7 x10^3/uL (4.0-11.0)
[2019-03-06 16:36] LABS: PROTHROMBIN TIME PATIENT 11.9 SEC (11.7-14.0)
[2019-03-06 16:46] LABS: ALBUMIN 3.9 g/dL (3.4-5.0); ALBUMIN/GLOBULIN RATIO 1.2 (1.0-1.7); CALCIUM 9.4 mg/dL (8.5-10.1); CREATININE 0.7 mg/dL (0.6-1.0); GFR 103.3; POTASSIUM 4.6 mmol/L (3.5-5.1); TOTAL BILIRUBIN 0.2 mg/dL (0.2-1.0); TOTAL PROTEIN 7.1 g/dL (6.4-8.2)
[2019-03-09 07:15] LABS: HEMOGLOBIN A1C 6.6 % (4.8-5.6)
== END | disposition home or self-care (01) ==
LOC: SURGPAT 13:39
PROVIDERS: ATTEND Neurological Surgery
DX: Z01.818 Encounter for other preprocedural examination (principal); M43.16 Spondylolisthesis, lumbar region; M54.16 Radiculopathy, lumbar region
CPT/HCPCS: 36415; 80053; 82306; 83036; 85025; 85610; 85730; 87641; 93005

== ENCOUNTER 2019-03-16 08:00 | Inpatient (IN) | payer OTHER ==
--- NOTE | 2019-03-14 13:47 | PREOP HP ---
DATE OF SERVICE: 03/16/2019 DATE OF SURGERY: 03/16/2019. HISTORY OF PRESENT ILLNESS: The patient is a pleasant 58-year-old, who has bilateral back and posterior buttock pain. The pain radiates into her right inguinal region. The problem began about 1 year ago after unloading a linotyper. She says she rates her pain as a 6-7/10. Any activity and lifting increase her pain. Hot showers and stretches help. She has had physical therapy in the winter of 2017 and then has been doing those exercises at home without significant benefit. She has had epidural steroid injections x 3 with only some benefit for a short period of time. I did not see a significant problem on the lumbar MRI scan. PAST MEDICAL HISTORY: Hypertension, diabetes. SURGICAL HISTORY: Hysterectomy in 1993, carpal tunnel release in 1988. FAMILY HISTORY: Alzheimer's, diabetes, migraine headache. 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 . Rarely exercises. Denies tobacco use. Former drinker. Drinks coffee, soda, and tea daily. ALLERGIES: No known drug allergies. CURRENT MEDICATIONS: Metformin, fenofibrate, carvedilol, rosuvastatin, calcium, Tylenol, and ibuprofen. REVIEW OF SYSTEMS: A 12-point review of systems was obtained and is noncontributory except for that mentioned above. PHYSICAL EXAMINATION: NEUROSURGERY EXAMINATION: GENERAL APPEARANCE: Alert, pleasant, in no acute distress. HEAD: Normocephalic and atraumatic. SKIN: Warm and dry. MUSCULOSKELETAL: Lumbar paraspinal muscle bulk is normal, restricted range of motion of the lumbar spine, iqtb-qu-ssjijdmm tenderness of the lumbar spine with palpation, normal range of motion of the lower extremities bilaterally. EXTREMITIES: No clubbing, cyanosis, or edema. NEUROLOGIC: Alert and oriented x 3, normal recent and remote memory, strength 5/5 in bilateral lower extremities, sensory was intact to light touch in lower extremities bilaterally, reflexes were symmetric and present in bilateral lower extremities. Negative straight leg raising bilaterally. Normal gait. IMAGING: I again reviewed a lumbar myelogram from 01/16/2019. On that study, there are degenerative changes throughout the lumbar spine, which are greatest at L4-L5. There is a grade 1 anterolisthesis. There is evidence of motion at this level, which decreases in flexion and extension. With the patient in upright position, the degree of attenuation of the contrast column at L4-L5 was significantly increased. On the CT portion of the study, there is a disk bulge at L4-L5. This clearly indents the thecal sac. This is much more significant on the standing films than on the CT portion when she is in supine position. There is neural foraminal compromise, which is most noticeable on the left side at L4-L5 and is also present on the right side at that level. ASSESSMENT/ PLAN: I continue to recommend a wide laminectomy at L4-L5 combined with diskectomy. That alone would further destabilize her and therefore my recommendation is for her to undergo laminectomy and diskectomy at L4-L5 combined with posterior instrumentation as well as anterior interbody fusion and posterolateral fusion. I did review this with her in detail including the rationale, technique, risks, and postoperative course. She understands. She would like to go ahead. We will make the arrangements. HAILY SNOW MD DR: LUIS/juan JOB#: [id number] / [id number] FLORES
[~2019-03-16] VITALS: Ht 161.3 cm; Wt 83.4 kg
[2019-03-16] VITALS (8 sets, daily range): BP systolic 119–163; BP diastolic 67–87
[~2019-03-16 08:00] MED LIST changes: +BACITRACIN 50,000 UNIT in IV NORMAL SALINE 1000ML BAG 1,000 ML IRR ONE; +BUPIVACAINE-EPI 0.5%-1:200000 MPF 30 ML VIAL. INJ ONE; -DOCU100C28 PO; +GELATIN SPONGE SIZE 100. ONE; -HYDR-2761 PO; +HYDROmorphone 2 MG/ML VIAL IV PRN; +IV RINGERS,LACTATED 1000ML 1,000 ML IV SCH; +KETOROLAC 60 MG/2 ML VIAL. ONE; +LIDOCAINE 1% PF 2 ML VIAL. ID PRN; -METH750T2 PO; +MORPHINE SULFATE 2 MG/ML VIAL. IV PRN; +ONDANSETRON PF 4 MG/2 ML VIAL. IV PRN; +PROCHLORPERAZINE 10 MG/2 ML VIAL. IV PRN; +THROMBIN TOPICAL 20,000 UNIT SPRAY.SYRN KIT TP ONE; +fentaNYL PF VIAL 100 MCG/2 ML VIAL IV PRN
[2019-03-16] MEDS ORDERED: INSULIN LISPRO 100 UNIT/ML 3ML VIAL for OP,RR ONLY. SQ PRN (08:45)
--- NOTE | 2019-03-16 09:52 | RAD ---
CT LUMBAR SPINE WO CONTRAST Indication: Spondylolisthesis, lumbar radiculopathy Technique: Noncontrast CT imaging was performed of the lumbar spine for the purpose of surgical assistance, multiplanar reconstruction images submitted. One or more of the following individualized dose reduction techniques were utilized for this examination: 1. Automated exposure control 2. Adjustment of the mA and/or kV according to patient size 3. Use of iterative reconstruction technique. Comparison: January 16, 2019 Findings: As seen previously, there is grade 1 anterior spondylolisthesis at L4-5, mild degenerative disc disease at this level. There is partial uncovering of the posterior aspect of the disc at L4-5 with superimposed disc osteophyte complex and bulge. There are also other minimal disc osteophyte complexes and bulges such as L5-S1, L3-4, L2-3. There is multilevel facet degenerative change. There is again neural foramina compromise greatest on the left at L4-5. IMPRESSION: 1. Exam was performed for purposes of surgical assistance. There is again grade 1 anterior spondylolisthesis at L4-5. There are multilevel disc osteophyte complexes and bulges. Electronically signed by: Kiran Pete MD (03/16/2019 9:49 AM) [email or web address]
[2019-03-16] MEDS ORDERED: MINERAL OIL/PETROLATUM,WHITE OPHTH OINT 3.5GM TUBE. ONE (10:03)
[2019-03-16] MEDS ORDERED: LIDOCAINE 2% PF 5 ML VIAL. ONE (10:03)
[2019-03-16] MEDS ORDERED: PHENYLEPHRINE 10 MG/ML VIAL. ONE (10:03)
[2019-03-16] MEDS ORDERED: MIDAZOLAM HCL/PF 2 MG/2 ML VIAL. ONE (10:03)
[2019-03-16] MEDS ORDERED: PROPOFOL 20 ML IV ONE (10:03)
[2019-03-16] MEDS ORDERED: DEXAMETHASONE SOD PHOS 20 MG/5 ML VIAL. ONE (10:03)
[2019-03-16] MEDS ORDERED: REMIFENTANIL 2 MG VIAL. IV ONE (10:03)
[2019-03-16] MEDS ORDERED: ROCURONIUM 50 MG/5 ML VIAL. ONE (10:03)
[2019-03-16] MEDS ORDERED: ONDANSETRON PF 4 MG/2 ML VIAL. ONE (10:03)
[2019-03-16] MEDS ORDERED: PROPOFOL 100 ML IV ONE (10:20)
[2019-03-16] MEDS ORDERED: CALCIUM CARBONATE 500 MG TAB.CHEW PO PRN (13:30)
[2019-03-16] MEDS ORDERED: MAG HYDROX/ALUMINUM HYD/SIMETH 30 ML ORAL.SUSP PO PRN (13:30)
[2019-03-16] MEDS ORDERED: NALOXONE 0.4 MG/ML VIAL. IV PRN ×2 (13:30)
[2019-03-16] MEDS ORDERED: diphenhydrAMINE HCL 25 MG CAPSULE PO PRN (13:30)
[2019-03-16] MEDS ORDERED: ACETAMINOPHEN 325 MG TABLET. PO PRN ×2 (13:30)
[2019-03-16] MEDS ORDERED: 0.9 % SODIUM CHLORIDE 10 ML DISP.SYRIN. IV PRN (13:30)
[2019-03-16] MEDS ORDERED: MAGNESIUM HYDROXIDE 2,400 MG/30 ML ORAL.SUSP. PO PRN (13:30)
[2019-03-16] MEDS ORDERED: ONDANSETRON PF 4 MG/2 ML VIAL. IV PRN (13:30)
[2019-03-16] MEDS ORDERED: DESFLURANE > 120 MINUTES IH ONE (14:02)
[2019-03-16] MEDS ORDERED: DEXTROSE 50% 25 GM / 50ML DISP.SYRIN. IV PRN (14:45)
[2019-03-16] MEDS ORDERED: REMIFENTANIL 1 MG VIAL. IV ONE (15:10)
[2019-03-16] MEDS ORDERED: ceFAZolin SODIUM 1 GM VIAL ONE (15:21)
[2019-03-16] MEDS ORDERED: PROPOFOL 50 ML IV ONE (15:37)
[2019-03-16] MEDS ORDERED: fentaNYL PF VIAL 100 MCG/2 ML VIAL ONE ×3 (16:34→17:59)
[2019-03-16] MEDS: fentaNYL PF VIAL 100 MCG/2 ML VIAL IV PRN ×3 (17:27→18:02)
[2019-03-16] MEDS ORDERED: PROCHLORPERAZINE 10 MG/2 ML VIAL. ONE (17:47)
[2019-03-16] MEDS: fentaNYL PF VIAL 100 MCG/2 ML VIAL IVP PRN ×3 (19:32→23:31)
[2019-03-16] MEDS: POTASSIUM CL 20MEQ D5-0.45NACL 1,000 ML IV SCH (20:00)
--- NOTE | 2019-03-16 20:03 | OP ---
DATE OF SURGERY: 03/16/2019 PREOPERATIVE DIAGNOSES: 1. Lumbar spinal stenosis, L4-L5. 2. Spondylolisthesis with motion, L4-L5. OPERATIONS PERFORMED: 1. Bilateral hemilaminotomies with decompression of dura and nerve root, L4-L5. 2. Posterior instrumentation, L4-L5. 3. Posterolateral fusion L4-L5 with allograft bone. 4. Anterior discectomy L4-L5 from an anterolateral oblique approach with placement of interbody fusion cage. The operation was done with EMG monitoring, SSEP monitoring, triggered EMG, fluoroscopy, microscopic dissection, BrainLAB guidance. SURGEON: Damion Snow M.D. BREAKER OILER: KAYLENE Gillis assisted with the surgery. She assisted with the instrumentation and closure. OPERATIVE INDICATIONS: The patient is a pleasant 58-year-old who developed intractable back, bilateral leg pain and was found to have the above-mentioned findings. She failed conservative measures and I recommended decompression of dura and nerve roots combined with an instrumented fusion. I spoke with her about the surgery and the risks, the technique, and expected postoperative course and she wished to go ahead. DESCRIPTION OF PROCEDURE: Following general endotracheal anesthesia, the patient was positioned prone on the Naeem table. Lumbar region prepped and draped in standard fashion. TALA hose and AV impulse boots were applied for DVT prophylaxis. The microscope was draped. Fluoroscopy was draped and brought into field. Monitoring was established. Ancef 2 grams was given less than 1 hour prior to initiation of the surgery. Using fluoroscopic guidance, the BrainLAB system was fixed in the left iliac crest and the BrainLAB system initialized and made a midline posterior incision extending from upper L4 to inferior L5, dissected down through skin and subcutaneous tissue, reflected the paraspinal muscles, beginning on the left hand side, I exposed the lateral aspect of the facet as well as the transverse processes. I did at this time aspirate 20 mL of bone marrow from the left iliac crest. I drilled into the posterior aspect of the pedicles of L4 and L5 and passed the black ball with stimulated EMG monitoring, used the ball tip probe, followed by tap again with monitoring, followed by screw placement. This was after I had excoriated the transverse processes at the lateral facets and packed allograft bone into the left lateral gutter. I used the [employer] spine system and I placed 6.5 x 45 screw in L4 and 6.5 x 40 in L5. In L4, I also used reduction screws and in the similar fashion on the right side, I created the same exposure. I excoriated the transverse processes and lateral facets were packed allograft bone in that location. I drilled into the posterior aspect of the pedicles of L4 and L5 in a similar fashion, again with stimulated monitoring, but I covered these openings with bone wax. I then drilled a generous hemilaminotomy, first on the left side and then on the right side at L4-L5. I trimmed away thickened ligamentum flavum, performed partial foraminotomies and fully decompressed the dura and nerve roots. There was considerable scarring from the dura onto the inner aspect of the ligamentum, which did take some microdissection through the microscope to remove, but this was taken care of and then I assured myself that the regions were very well decompressed bilaterally. On the right side, I did incise the annulus and performed discectomy with pituitary rongeurs. I then made an incision in the right flank and passed the [employer] system with a shield down to dock at the lateral aspect of the pedicle of L5 and then worked superiorly to enter into the disc space. I passed the K-wire, followed by a dilator, followed by a working channel, and performed discectomy with pituitary rongeurs, and endplate scrapers as well as curettes and fully decompressed the L4-L5 disc. I then measured and placed a cage, which was packed with allograft bone. I did prior to this gently feed bone into the disc space to add to the amount of fusion present and then the cage was tapped into position and rotated appropriately and films were fine. I released the cage. I then placed the posterior instrumentation at L4 and L5 and I gently torqued the system sequentially, irrigated copiously with antibiotic solution and at this point, I felt that I had an excellent decompression combined with an instrumentation. I closed the wound in layers with absorbable suture and skin was closed with 4-0 subcuticular stitch. The operation went very well and the patient taken uneventfully to recovery room. I was quite pleased with the surgery. DAMION SNOW MD DR: LUIS/juan JOB#: [id number] / [id number] MTDD
[2019-03-16] MEDS ORDERED: ATORVASTATIN CALCIUM 40 MG TABLET. PO SCH (21:00)
[2019-03-16] MEDS: DOCUSATE SODIUM 100 MG CAPSULE. PO SCH (21:00)
[2019-03-16] MEDS: ceFAZolin SODIUM IV Push 1 GM VIAL. IVP SCH (21:34)
[2019-03-17] MEDS: fentaNYL PF VIAL 100 MCG/2 ML VIAL IVP PRN ×3 (01:39→05:49)
[2019-03-17 03:00] VITALS: BP 144/88
[2019-03-17] MEDS: METHOCARBAMOL 750 MG TABLET PO PRN ×2 (03:15→11:56)
[2019-03-17] MEDS: ceFAZolin SODIUM IV Push 1 GM VIAL. IVP SCH (05:46)
[2019-03-17 06:54] VITALS: BP 110/71
[2019-03-17] MEDS ORDERED: HYDROcodone/APAP 5/325MG 1 TAB TABLET PO PRN (07:15)
[2019-03-17 07:55] VITALS: BP 110/71
[2019-03-17] MEDS: DOCUSATE SODIUM 100 MG CAPSULE. PO SCH (07:55)
[2019-03-17] MEDS: HYDROcodone/APAP 5/325MG 1 TAB TABLET PO PRN ×2 (07:55→11:56)
[2019-03-17] MEDS ORDERED: metFORMIN 500 MG TABLET PO SCH (08:00)
[2019-03-17] MEDS ORDERED: FENOFIBRATE,MICRONIZED 134 MG CAPSULE PO SCH (09:00)
[2019-03-17] MEDS ORDERED: CARVEDILOL 6.25 MG TABLET. PO SCH (09:00)
[2019-03-17] MEDS: POTASSIUM CL 20MEQ D5-0.45NACL 1,000 ML IV SCH (09:20)
[2019-03-17] MEDS ORDERED: HYDR-2761 PO (10:51)
[2019-03-17] MEDS ORDERED: DOCU100C28 PO (10:51)
[2019-03-17] MEDS ORDERED: METH750T2 PO (10:51)
--- NOTE | 2019-03-17 10:52 | DISCH ---
DISCHARGE INSTRUCTIONS Condition on Discharge Condition on Discharge: Stable Activity After Discharge Activity Instructions for Disc: Activity as tolerated, Avoid exertion Bathing Instructions: Shower-keep dressing dry Lifting Instructions after Dis: No heavy lifting, No pulling or pushing, Do not lift >10 pounds Driving Instructions after Dis: No driving for 2 weeks Diet after Discharge Diet after Discharge: Regular Additional Diet Restrictions: resume home diet Wound Incision Care Wound/Incision Care: Ice to area for comfort Other wound/incision instructi: may remove dressing in 48 hours if dry then may shower, no soaking Contacting the [place] after DC Call your doctor for: Concerns you may have Follow-Up Follow up with: Dr. Snow's nurse in 2 weeks [phone] Treatment/Equipment after DC Adaptive Equipment Issued: None HAILY SNOW MD Mar 17, 2019 10:52
--- NOTE | 2019-03-17 12:22 | NUR ---
Patient left the building with family around 1220. Discharge education was completed by this nurse, therapy, and BRIAN Alan. Incision dressing changed prior to discharge and IV's were discontinued without any complications. Due to drainage, extra dressings were given to the patient for dressing changes at home. Her LSO brace came from [facility] today and was fitted to her with no concerns noted. Scripts for pain medicine and robaxin given to the patient. No concerns noted from patient or family upon discharge.
--- NOTE | 2019-03-20 17:06 | PATHOLOGY ---
[facility] [place] Accession Number: [id number] . 01 Material submitted: . vertebral column - LUMBAR DECOMPRESSION AND DISC . 01 Clinical history: . Lumbar spondylolisthesis, radiculopathy. . 02 Diagnosis: Segments of fibrocartilaginous tissue and bone, lumbar decompression and disc: - Degenerative changes of fibrocartilaginous tissue. 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 02 Comment: There is no evidence of an acute inflammatory process or malignancy. 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 02 Electronically signed: . Sedrick Schulte MD, Pathologist NPI- [id number] . 01 Gross description: . Received in formalin labeled "Pride, Kamilah, lumbar decompression and disc" is a 5.5 x 4.7 x 1.5 cm aggregate of stout-white soft tissue and stout-white bony material. Adult Neuropsychologist tissue is submitted in cassette A1 following decalcification. ([facility] [place]; 03/19/2019) [facility] 03/20/2019 1402 Local . 02 Pathologist provided ICD-10: M43.16, M54.10 . 02 CPT . 573217, [id number] Specimen Comment: A courtesy copy of this report has been sent to Specimen Comment: [phone], . Specimen Comment: Report sent to / DR MAY Performed at: 01 [facility] [address], [place], [place] [id number] MD Paul Fonseca MD Phone: [phone] Performed at: 02 [facility] [address] [place], [place] [id number] MD Sedrick Schulte MD Phone: [phone]
== END 2019-03-17 12:20 | disposition home or self-care (01) | DRG 460 ==
LOC: OPSVCIP 08:00 → 4 SOUTHEST 18:20
PROVIDERS: ADMIT Neurological Surgery; ATTEND Neurological Surgery
PROC: 0SB20ZZ Excision of Lumbar Vertebral Disc, Open Approach (ICD-10-PCS; 2019-03-16)
PROC: 01NB0ZZ Release Lumbar Nerve, Open Approach (ICD-10-PCS; 2019-03-16)
PROC: 00NY0ZZ Release Lumbar Spinal Cord, Open Approach (ICD-10-PCS; 2019-03-16)
PROC: 4A11X4G Monitoring of Peripheral Nervous Electrical Activity, Intraoperative, External Approach (ICD-10-PCS; 2019-03-16)
PROC: 07DR0ZZ Extraction of Iliac Bone Marrow, Open Approach (ICD-10-PCS; 2019-03-16)
PROC: 0SG00AJ Fusion of Lumbar Vertebral Joint with Interbody Fusion Device, Posterior Approach, Anterior Column, Open Approach (ICD-10-PCS; principal; 2019-03-16 10:30)
DX: M48.061 Spinal stenosis, lumbar region without neurogenic claudication (principal); M54.16 Radiculopathy, lumbar region; E11.9 Type 2 diabetes mellitus without complications; I10 Essential (primary) hypertension; M43.16 Spondylolisthesis, lumbar region; Z82.0 Family history of epilepsy and other diseases of the nervous system; Z83.3 Family history of diabetes mellitus; Z90.710 Acquired absence of both cervix and uterus; Z88.8 Allergy status to other drugs, medicaments and biological substances; Z79.899 Other long term (current) drug therapy
CPT/HCPCS: 36415; 72131; 76000; 82962; 86850; 86900; 86901; 88304; 88311; A7015; C1713; J0690; J0696; J1100; J1815; J1885; J2001; J2250; J2405; J2704; J3010; J3490; J7030; J7120; 97530; G0378

== ENCOUNTER → 2019-05-25 | Outpatient (CLI) | payer OTHER ==
[~2019-05-25] MED LIST changes: -BACITRACIN 50,000 UNIT in IV NORMAL SALINE 1000ML BAG 1,000 ML IRR ONE; -BUPIVACAINE-EPI 0.5%-1:200000 MPF 30 ML VIAL. INJ ONE; +DOCU100C28 PO; -GELATIN SPONGE SIZE 100. ONE; +HYDR-2761 PO; -HYDROmorphone 2 MG/ML VIAL IV PRN; -IV RINGERS,LACTATED 1000ML 1,000 ML IV SCH; -KETOROLAC 60 MG/2 ML VIAL. ONE; -LIDOCAINE 1% PF 2 ML VIAL. ID PRN; +METH750T2 PO; -MORPHINE SULFATE 2 MG/ML VIAL. IV PRN; -ONDANSETRON PF 4 MG/2 ML VIAL. IV PRN; -PROCHLORPERAZINE 10 MG/2 ML VIAL. IV PRN; -THROMBIN TOPICAL 20,000 UNIT SPRAY.SYRN KIT TP ONE; -fentaNYL PF VIAL 100 MCG/2 ML VIAL IV PRN
--- NOTE | 2019-05-25 14:10 | KCIC ---
3 views lumbar spine compared to lumbar spine CT scan dated March 16, 2019 for status post fusion. FINDINGS: There has been interval pedicle screw and john fixation of L4 on L5, with interbody spacer at L4-5. There is mild anterolisthesis of L4 and L5. No hardware abnormalities are identified. Remaining intervertebral disc spaces appear reasonably maintained. There is some degenerative change at L5-S1, and at the lower lumbar facets which is stable. No new osseous abnormalities are identified. Small calcification in the right retroperitoneum may represent a renal calculus or calcification within the enteral stream. IMPRESSION: 1. Postsurgical changes at L4-5 as described. 2. Possible small right renal calculus. Electronically signed by: Dick Hartman MD (05/25/2019 2:07 PM) [id number]
== END | disposition home or self-care (01) ==
LOC: KCIC 13:31
PROVIDERS: ATTEND Neurological Surgery
DX: Z98.1 Arthrodesis status (principal)
CPT/HCPCS: 72100

== ENCOUNTER → 2019-08-04 | Outpatient (CLI) | payer OTHER ==
[~2019-08-04] MED LIST changes: +FENO145T3 PO; -FENO145T30 PO; +GADOTERATE 7.5 MMOL/15ML VIAL. IVP ONE
--- NOTE | 2019-08-04 16:18 | KCIC ---
MRI Lumbar Spine without and with contrast History: Lumbar radiculopathy, right-sided hip pain and leg pain, previous surgery Technique: Multiplanar, multi sequential pre and postcontrast MR imaging was performed of the lumbar spine. Comparison: November 17, 2018 MRI lumbar spine exam and also January 16, [address] exam Findings: Lumbar vertebral body stature is maintained. Conus terminates near T12-L1. There is now posterolateral fusion hardware with bilateral pedicle screws at L4-5. There is now L4-5 interbody graft. Exam does not accurately evaluate integrity of hardware. There is increased, grade 1 anterior spondylolisthesis at L4-5 on the order about 7 mm. There is now negligible posterior subluxation of L3 relative to L4. 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 There is again mild disc desiccation at other levels of the lumbar spine. There is no nodular enhancement of the conus or cauda equina. T11-T12: There is again very shallow bulge/protrusion without significant spinal stenosis. Neural foramina are adequate. T12-L1: There is again shallow posterior protrusion without significant spinal stenosis. There is again mild buckling of the ligamentum flavum. Neural foramina are overall adequate. L1-L2: There is again minimal disc osteophyte complex. Neural foramina and spinal canal are adequate. There is mild facet degenerative change. L2-L3: There is again minimal disc osteophyte complex and bulge. There is again mild buckling of the ligamentum flavum and facet degenerative change. There is significant spinal stenosis. Neural foramina are overall adequate. L3-L4: There is again facet degenerative change and buckling of the ligamentum flavum. There is minimal disc osteophyte complex and bulge. There is minimal narrowing of the far left lateral recess. There is minimal narrowing of the left neural foramen, shallow protrusion in the inferior distal left neural foramen and extraforaminal region without displacement exiting left L3 nerve root. Right neural foramen is not significantly narrowed. L4-L5: There is again facet degenerative change. There is increased degree of overall moderate spinal stenosis with degree of lateral recess stenosis bilaterally, narrowing due to increased spondylolisthesis. There is mild narrowing of the inferior left neural foramen, right neural foramen not significantly narrowed. L5-S1: There is again minimal bulge, no displacement descending S1 nerve roots or significant spinal stenosis. Disc osteophyte from complex likely contributes to moderate narrowing of the left neural foramen, although some artifact in the region of the neural foramina greater by hardware. There is probable mild narrowing of the right neural foramen. Impression: 1. Compared with the previous exam, there is now posterolateral fusion hardware and interbody graft L4-5, increased grade 1 anterior spondylolisthesis contributing to increased overall moderate spinal stenosis including narrowing of the lateral recesses. There is mild narrowing of the left lateral recess at L3-4 as described. There is now negligible posterior subluxation L3 relative to L4. There is moderate narrowing of the left L5-S1 neural foramen, other minimal narrowing such as on the left at L4-5 and L3-4 as described. Electronically signed by: Kiran Pete MD (08/04/2019 4:15 PM) [id number]
== END | disposition home or self-care (01) ==
LOC: KCIC MRI 14:33
PROVIDERS: ATTEND Neurological Surgery
DX: M51.16 Intervertebral disc disorders with radiculopathy, lumbar region (principal); M48.07 Spinal stenosis, lumbosacral region; M43.16 Spondylolisthesis, lumbar region; M47.26 Other spondylosis with radiculopathy, lumbar region; M25.78 Osteophyte, vertebrae; M43.5X6 Other recurrent vertebral dislocation, lumbar region; M51.24 Other intervertebral disc displacement, thoracic region; Z98.1 Arthrodesis status
CPT/HCPCS: 72158; 82565; A9575

== ENCOUNTER → 2019-09-27 | Outpatient (CLI) | payer OTHER ==
[~2019-09-27] MED LIST changes: -GADOTERATE 7.5 MMOL/15ML VIAL. IVP ONE
--- NOTE | 2019-09-27 10:49 | PAIN ---
DATE OF SERVICE: 09/27/2019 PROGRESS NOTE FOR PAIN CLINIC DIAGNOSES: 1. Lumbar radiculopathy with lumbar degenerative disk disease and lumbar post-laminectomy syndrome. 2. Right greater trochanteric bursitis. HISTORY OF PRESENT ILLNESS: The patient is a 59-year-old female, returns for followup status post lumbar epidural steroid injections, last seen on 11/16/2018, patient did very well and ended up with surgery however, in the lumbar spine with fusion at L4-L5 in 02/2019. The patient reports she did very well with pain in the leg, was much better but now is returning to moderate extent in the right side, right leg, posterior gluteus, lateral thigh, anterior thigh, medial thigh, groin to some extent on the right and into the lower leg on the anterior aspect. The patient reports it is aching and constant, on and off in intensity. Reports no injury or action that she is aware of since the surgery, has not strained her back or lifted anything heavy. The patient reports it is a 6 on a scale of 10 at its worst over the past week, 5 on average, 5 at its least and is a 5 today. The patient reports no new motor or sensory deficits, no new bowel or bladder incontinence, right leg is doing much better, but again the pain is returning. Describes it as aching, sharp, shooting and dull in the back, worse with activity, better with sitting or lying down, does not awaken her from sleep at night. PHYSICAL EXAMINATION: VITAL SIGNS: The patient's blood pressure 128/81, pulse 90, respirations 16, temperature 98.1 degrees Fahrenheit, height is 5 feet 3 inches and weight is 193 pounds. GENERAL: The patient is awake, alert, oriented, appropriate, very pleasant demeanor. HEENT: Head shows normocephalic, atraumatic. Extraocular movements are intact and symmetrical. Oral cavity: Mucous membranes moist and pink. Dentition is intact. NECK: Shows anterior throat supple without palpable lymphadenopathy noted. Swallow reflex symmetrical. CHEST: Shows normal on inspection. Breath sounds are clear bilaterally. HEART: Shows S1, S2 clear. No murmurs auscultated. ABDOMEN: Soft, nontender, nondistended. BACK: Shows spine grossly in the midline. Normal appearing thoracic kyphosis and minor flattening of lumbar lordotic curvature with well-healed surgical scar in the midline. Lumbar paraspinous muscle shows symmetrical with inspection, on palpation shows some moderate tenderness diffusely bilaterally going diffusely without significant radiation. EXTREMITIES: The patient's lower extremities show deep tendon reflexes 2+ in the patellar, 1+ in the tendo-calcaneus tendons. Motor exam is strong with 5/5 dorsiflexion, extension approximately 4/5 with right quadriceps and hamstring flexion. Peripheral pulses are 1+. No peripheral edema is noted bilaterally. The patient's straight leg raise noted to be mildly positive on the right at about 40 degrees, decreased with knee flexion, negative on the left. PLAN: Options were discussed with the patient. The patient's old chart was reviewed as her current medication regimen updated. Current review of systems updated today as well. We will proceed with preauthorization for a lumbar epidural steroid injection as she done very well with these in the past, now postsurgical having clinical radiculopathy on the right side and a L4-L5 dermatomal distribution. The patient will try Medrol Dosepak in the meantime patient was given instruction as well as side effects to be aware of with the medication and will follow up for a translaminar L4-L5 lumbar epidural steroid injection on return. The patient will continue with stretching and strengthening exercises that she was doing with therapy after the surgery and is doing this on her own now, those will continue. Again Medrol Dosepak in the meantime, we will have her return in approximately 1 week and plan on lumbar epidural steroid injection at that time. LILIANA ALVAREZ MD DR: EMMA/juan JOB#: [id number] / [id number]
== END | disposition home or self-care (01) ==
LOC: PNCL 09:00
PROVIDERS: ATTEND Anesthesiology
DX: M51.16 Intervertebral disc disorders with radiculopathy, lumbar region (principal); M96.1 Postlaminectomy syndrome, not elsewhere classified; M70.61 Trochanteric bursitis, right hip
CPT/HCPCS: G0463

== ENCOUNTER → 2019-10-18 | Outpatient (CLI) | payer OTHER ==
[~2019-10-18] MED LIST changes: +IOHEXOL 180 MG/ML 10 ML VIAL. ONE; +methylPREDNISolone ACETATE 40 MG/ML VIAL. ONE; +methylPREDNISolone ACETATE 80 MG/ML VIAL. ONE
--- NOTE | 2019-10-18 19:44 | PAIN ---
DATE OF SERVICE: 10/18/2019 DIAGNOSES: Lumbar radiculopathy with lumbar degenerative disk disease and lumbar post-laminectomy syndrome. HISTORY OF PRESENT ILLNESS: The patient is a 59-year-old female who returns for followup status post evaluation and preauthorization for lumbar epidural steroid injection. The patient has obtained this and would like to proceed today. Still has pain in the low back, right lower extremity as it was in her low back, posterior gluteus, lateral thigh, anterior thigh, medial thigh, medial lower leg, radiating in the right side with walking, standing, changing positions. The patient reports it is a 6 on a scale of 10 at its worst, average and least and is a 6 today. The patient reports it is aching and tight, becoming more constant in the back and right leg. The patient reports the Medrol Dosepak that we had given her on her last visit did actually decrease the pain by about 25-30%. The patient reports no new motor or sensory deficits. Still worse with walking, standing, changing positions, better with sitting or lying down, but it does not awaken her from sleep at night. PHYSICAL EXAMINATION: VITAL SIGNS: The patient's blood pressure is 137/79, pulse 68, respirations 18, temperature is 98.5 degrees Fahrenheit, height is 5 feet 3 inches, weight is 193 pounds. GENERAL: The patient is awake, alert, oriented, appropriate, very pleasant demeanor. HEENT: Head shows normocephalic, atraumatic. Extraocular movements are intact and symmetrical. Oral cavity shows mucous membranes moist and pink. Dentition is intact. NECK: Shows anterior throat supple without palpable lymphadenopathy noted. Swallow reflex symmetrical. CHEST: Shows normal on inspection. Breath sounds are clear to auscultation bilaterally. HEART: Shows S1, S2 clear. No murmurs auscultated. ABDOMEN: Soft, nontender, nondistended. No palpable organomegaly is noted. No rebound or guarding demonstrated. BACK: Shows spine grossly in the midline. Normal appearing thoracic kyphosis and some flattening of lumbar lordotic curvature with well-healed surgical scar noted. Lumbar paraspinous muscle shows symmetrical on inspection, on palpation shows some moderate tenderness diffusely bilaterally and diffusely without significant radiation. EXTREMITIES: The patient's lower extremities show deep tendon reflexes at 2+ in the patellar, 1+ tendo-calcaneus tendons. Motor exam is approximately 4 on a scale of 5 on the right with dorsiflexion and extension, 5/5 on the left. Peripheral pulses are 1+ posterior tibia. No peripheral edema bilaterally. Options were discussed with the patient. The patient's old chart was reviewed as her current medication regimen updated. Current review of systems updated today as well and we will proceed with a lumbar epidural steroid injection today with fluoroscopic guidance. Risks were again discussed including, but not limited to bleeding, infection, possibility of epidural hematoma, subsequent neurological compromise, dural puncture, headaches, spinal cord and/or nerve damage, side effects of steroid medication and poor results regarding pain control. The patient understands and wished to proceed. The patient will return to clinic in approximately 2 weeks for followup. She was counseled as to return appointment, activity level and side effects to be aware of. DIAGNOSES: Lumbar radiculopathy with lumbar degenerative disk disease and lumbar post-laminectomy syndrome. PROCEDURE: Lumbar epidural steroid injection, translaminar approach at the L3-L4 level using C-arm fluoroscopic guidance under sterile prep and drape using local anesthetic. MEDICATION INJECTED: A total of 120 mg Depo-Medrol plus 10 mL preservative-free normal saline and 2 mL of contrast. CONDITION AT DISCHARGE: Stable. The patient tolerated procedure well, had no complications. LILIANA ALVAREZ MD DR: EMMA/juan JOB#: [id number] / [id number]
== END ==
LOC: PNCL 12:29
PROVIDERS: ATTEND Anesthesiology
DX: M51.16 Intervertebral disc disorders with radiculopathy, lumbar region (principal); M96.1 Postlaminectomy syndrome, not elsewhere classified
CPT/HCPCS: 62323; J1030; J1040; Q9965

== ENCOUNTER → 2019-12-05 | Outpatient (CLI) | payer OTHER ==
[~2019-12-05] MED LIST changes: +ASPI-630 PO
--- NOTE | 2019-12-05 11:02 | PAIN ---
DATE OF SERVICE: 12/05/2019 PROGRESS NOTE FOR PAIN CLINIC DIAGNOSES: Lumbar radiculopathy with lumbar degenerative disk disease and lumbar post-laminectomy syndrome. HISTORY OF PRESENT ILLNESS: The patient is a 59-year-old female who returns for followup status post lumbar epidural steroid injection x 1. The patient reports she did very well initially about 70% improvement with her pain in her low back and right leg. The patient reports the pain is returning now to about a 25% improvement overall. The patient reports the pain is a 6 on a scale of 10 at its worst in the past week, 5 on average, 5 at its least and is a 5 today. The patient reports it is aching and dull, also constant and sharp at times in the low back, right side, right posterior gluteus, lateral thigh, anterior thigh and right medial lower leg. The patient reports it is aching, dull, tight, becoming more constant with time, but she is doing much better with walking greater distances for about 2 months and doing work activities, household activities with much greater ease and comfort, traveling with greater ease. The patient reports still does not awaken her from sleep at night, feels better with lying down or sitting, worse with walking and standing. The patient reports no new motor or sensory deficits, no new bowel or bladder incontinence or other complaints. PHYSICAL EXAMINATION: VITAL SIGNS: The patient's blood pressure is 133/86, pulse 93, respirations 18, temperature 98.2 degrees Fahrenheit, height is 5 feet 3 inches and weight is 190 pounds. GENERAL: The patient is awake, alert, oriented, appropriate, very pleasant demeanor. HEENT: Head shows normocephalic, atraumatic. Extraocular movements are intact and symmetrical. Oral cavity: Mucous membranes moist and pink. Dentition is intact. NECK: Shows anterior throat supple without palpable lymphadenopathy noted. Neck shows full rotational motion of cervical spine, both laterally as well as extension and flexion without significant difficulty. BACK: The patient's back shows good rotational motion both laterally as well as extension and flexion without significant pain reported. EXTREMITIES: Lower extremities show deep tendon reflexes at 2+ patellar, 1+ tendo-calcaneus tendons. Motor exam is approximately 4 on a scale of 5 on the right with dorsiflexion, extension, quadriceps and hamstring flexion and 5/5 on the left. Peripheral pulses are 1+ posterior tibia. No peripheral edema bilaterally. Options were discussed with the patient. The patient's old chart was reviewed as her current medication regimen updated. Current review of systems updated today as well. We will proceed with a second in the series of lumbar epidural steroid injection today with fluoroscopic guidance. Risks were again discussed including, but not limited to bleeding, infection, possibility of epidural hematoma, subsequent neurological compromise, dural puncture, headaches, spinal cord and/or nerve damage, side effects of steroid medication and poor results regarding pain control. The patient understands and wished to proceed. The patient will return to clinic in approximately 2 weeks for a followup. She was counseled on return appointment, activity level and side effects to be aware of. DIAGNOSES: Lumbar radiculopathy with lumbar degenerative disk disease and lumbar post-laminectomy syndrome. PROCEDURE: Lumbar epidural steroid injection, translaminar approach at L3-L4 level using C-arm fluoroscopic guidance under sterile prep and drape using local anesthetic. MEDICATION INJECTED: A total of 120 mg Depo-Medrol plus 10 mL preservative-free normal saline and 2 mL of contrast. CONDITION AT DISCHARGE: Stable. The patient tolerated procedure well, had no complications. LILIANA ALVAREZ MD DR: EMMA/juan JOB#: [id number] / [id number]
== END ==
LOC: PNCL 10:12
PROVIDERS: ATTEND Anesthesiology
DX: M51.16 Intervertebral disc disorders with radiculopathy, lumbar region (principal); M96.1 Postlaminectomy syndrome, not elsewhere classified
CPT/HCPCS: 62323; J1030; J1040; Q9965

== ENCOUNTER → 2021-03-29 | Outpatient (CLI) | payer OTHER ==
[~2021-03-29] MED LIST changes: +CYCL10TA19 PO; -CYCL10TA2 PO; -IOHEXOL 180 MG/ML 10 ML VIAL. ONE; +METH-562 PO; -METH750T2 PO; -methylPREDNISolone ACETATE 40 MG/ML VIAL. ONE; -methylPREDNISolone ACETATE 80 MG/ML VIAL. ONE
--- NOTE | 2021-03-31 08:23 | RAD ---
INDICATION : Routine Screening. COMPARISON: December 2017 TECHNIQUE: Standard mammogram screening views of the bilateral breasts were obtained. CAD was utilize d. FINDINGS: The breasts are scattered density. No definite suspicious mass. IMPRESSION: BI-RADS Category 1: Negative. The patient was placed into the recall system with a suggested recall date for follow up imaging. Mammography is the most sensitive method for finding small breast cancers, but it does not detect the m all and is not a substitute for careful clinical examination. A negative mammogram does not negate a clinically suspicious finding and should not result in delay in biopsying a clinically suspicious abnormality. Electronically signed by: Geovanny Black MD (03/31/2021 8:20 AM) [id number]
== END ==
LOC: MAMMO 08:40
PROVIDERS: ATTEND Nurse Practitioner Family
DX: Z12.31 Encounter for screening mammogram for malignant neoplasm of breast (principal)
CPT/HCPCS: 77067